=== PATIENT | male | born 1970 | race Caucasian/White ===

== ENCOUNTER 2016-03-24 15:30 | Outpatient (CLI) | payer OTHER | END 2016-03-24 15:31 | disposition home or self-care (01) | DX: D68.62 Lupus anticoagulant syndrome (principal) ==

== ENCOUNTER 2016-10-12 07:48 | Outpatient (CLI) | payer OTHER ==
[2016-10-12] MEDS ORDERED: GADOBUTROL 15 MMOL/15 ML VIAL IVP ONE (08:27)
--- NOTE | 2016-10-12 12:04 | MRI Report ---
EXAM: MRI BRAIN WITHOUT AND WITH CONTRAST EXAM DATE: 10/12/2016 09:05 AM. CLINICAL HISTORY: 46-year-old with history of multiple sclerosis presenting with bilateral arm fatigu e and spasms. Evaluate for interval change. COMPARISON: MR brain 12/16/2015. TECHNIQUE: Multiplanar, multisequence T1-weighted and fluid-sensitive MR sequences of the brain were performed. Sequences optimized for demyelinating disease evaluation. Other: None. Without and with IV Contrast: 11 cc GADAVIST. FINDINGS: BRAIN: Parenchyma: There is moderate bilateral areas of T2/FLAIR signal hyperintensity involving the juxtaco rtical, subcortical, and periventricular white matter that are similar in size and distribution to . Several lesions denser T1 signal hypointensity compatible with myelin vacuolization. No defi nite new T2 hyperintense lesion seen within the supratentorial white matter. There are T2 hyperintens e lesion seen involving bilateral thalami that appear similar to prior study. No definite new T2 hype rintense lesions involving the corpus callosum, brainstem, or cerebellum. No abnormal postcontrast en hancement. No acute parenchymal hemorrhage, mass, or midline shift. No areas restricted diffusion to suggest acu te infarct. Pituitary: Unremarkable. Ventricles and Extra-axial Spaces: Ventricles are symmetric and normal in size. Extra-axial spaces ar e unremarkable. Cisterns are patent. Fluid is seen within Meckel's caves. Visualized detective and intelligence analyst y canals appear clear. Orbits: Unremarkable. Sinuses: Small left maxillary mucosal retention cyst versus polyp. Mastoid air cells and middle ear c avities are clear. Major Vascular Flow Voids: Intact. Dural Venous Sinuses and Major Central Veins: Patent on post-contrast images. IMPRESSION: 1. Moderate white matter changes that appear similar in size and distribution to MR 12/16/2015 and can be compatible with patient's history of demyelinating disease. No definite new T2 hyperintense lesio n seen. No abnormal postcontrast enhancement to suggest active demyelination. 2. No acute infarct, intracranial hemorrhage, mass, hydrocephalus, or abnormal postcontrast enhanceme nt. [facility] Referring Provider Line: [phone] SITE ID: [id number]
== END 2016-10-12 07:49 | disposition home or self-care (01) ==
LOC: DI 07:48
PROVIDERS: ATTEND Specialist
DX: G93.9 Disorder of brain, unspecified (principal)
CPT/HCPCS: 70553; A9585

== ENCOUNTER 2017-01-25 08:30 | Outpatient (CLI) | payer OTHER ==
[2017-01-25 13:30] LABS: BASOPHILS % (AUTO) 0.3 %; EOSINOPHILS # (AUTO) 0.2 10^3/uL (0.0-0.7); EOSINOPHILS % (AUTO) 2.6 %; HCT - HEMATOCRIT 41.7 % (42.0-52.0); HGB - HEMOGLOBIN 14.2 g/dL (14.0-18.0); LYMPHOCYTES # (AUTO) 2.3 10^3/uL (1.5-3.5); LYMPHOCYTES % (AUTO) 32.4 %; MEAN CORPUSCULAR VOLUME 96.9 fL (80.0-94.0); MEAN PLATELET VOLUME 8.2 fL (7.4-11.4); MONOCYTES # (AUTO) 0.5 10^3/uL (0.0-1.0); MONOCYTES % (AUTO) 6.9 %; NEUTROPHILS % (AUTO) 57.8 %; RED BLOOD COUNT 4.31 10^6/uL (4.70-6.10); RED CELL DISTRIBUTION WIDTH 12.6 % (12.0-15.0)
[2017-01-25 13:38] LABS: ALBUMIN/GLOBULIN RATIO 1.8 (1.0-2.2); BILIRUBIN,TOTAL 0.4 mg/dL (0.2-1.0); BUN - BLOOD UREA NITROGEN 19 mg/dL (6-20); CARBON DIOXIDE - CO2 25 mmol/L (21-32); CHLORIDE 105 mmol/L (101-111); CHOL/HDL RATIO 5.6 (<5.0); CHOLESTEROL 262 mg/dL; CREATININE 0.9 mg/dL (0.6-1.2); GFR - MDRD 90 (>89); GLUCOSE 91 mg/dL (70-100); HDL CHOLESTEROL 47 mg/dL; LDL/HDL RATIO 3.7 (<3.6); POTASSIUM 4.3 mmol/L (3.5-5.0); SODIUM 136 mmol/L (135-145); TOTAL PROTEIN 6.7 g/dL (6.7-8.2); TRIGLYCERIDES 205 mg/dL; VLDL CHOLESTEROL 41 mg/dL
== END 2017-01-25 08:31 | disposition home or self-care (01) ==
LOC: LAB.WCP 08:30
PROVIDERS: ATTEND Physician Assistant Medical
DX: Z00.00 Encounter for general adult medical examination without abnormal findings (principal); Z12.5 Encounter for screening for malignant neoplasm of prostate
CPT/HCPCS: 36415; 80053; 80061; 84153; 84443; 85025

== ENCOUNTER 2017-04-16 15:43 | Outpatient (CLI) | payer OTHER | END 2017-04-16 15:44 | disposition home or self-care (01) | LOC: RT 15:43 | PROVIDERS: ATTEND Orthopaedic Surgery Orthopaedic Surgery of the Spine | DX: Z01.818 Encounter for other preprocedural examination (principal); M48.02 Spinal stenosis, cervical region | CPT/HCPCS: 36415; 80048; 85025; 93005 ==

== ENCOUNTER 2017-04-16 15:48 | Outpatient (CLI) | payer OTHER ==
[2017-04-16 16:00] LABS: BASOPHILS # (AUTO) 0.1 10^3/uL (0.0-0.1); BASOPHILS % (AUTO) 0.7 %; EOSINOPHILS # (AUTO) 0.2 10^3/uL (0.0-0.7); EOSINOPHILS % (AUTO) 2.3 %; HGB - HEMOGLOBIN 13.2 g/dL (14.0-18.0); LYMPHOCYTES # (AUTO) 2.7 10^3/uL (1.5-3.5); LYMPHOCYTES % (AUTO) 39.7 %; MEAN CORPUSCULAR HEMOGLOBIN 33.1 pg (27.0-31.0); MEAN CORPUSCULAR HGB CONC 34.4 g/dL (32.0-36.0); MEAN CORPUSCULAR VOLUME 96.2 fL (80.0-94.0); MEAN PLATELET VOLUME 7.7 fL (7.4-11.4); MONOCYTES # (AUTO) 0.7 10^3/uL (0.0-1.0); MONOCYTES % (AUTO) 10.1 %; NEUTROPHILS # (AUTO) 3.2 10^3/uL (1.5-6.6); NEUTROPHILS % (AUTO) 47.2 %; PLT - PLATELET COUNT 266 10^3/uL (130-450); RED CELL DISTRIBUTION WIDTH 13.2 % (12.0-15.0); WHITE BLOOD COUNT 6.8 x10^3/uL (4.8-10.8)
[2017-04-16 16:15] LABS: CALCIUM 8.5 mg/dL (8.5-10.3); CREATININE 0.8 mg/dL (0.6-1.2)
== END 2017-04-16 15:49 | disposition home or self-care (01) ==
LOC: LAB 15:48
PROVIDERS: ATTEND Orthopaedic Surgery Orthopaedic Surgery of the Spine
DX: M48.02 Spinal stenosis, cervical region (principal)
CPT/HCPCS: 36415; 80048; 85025

== ENCOUNTER 2017-07-29 07:23 | Emergency (ER) | payer OTHER ==
--- NOTE | 2017-07-29 08:21 | XRAY Preliminary Report ---
Exam: XR CHEST 2 VIEW X-RAY IMPRESSION: Unremarkable chest for age and body size. No pneumonia, CHF or other demonstrated cause f or the patient's symptoms. [facility] SITE ID: [id number]
--- NOTE | 2017-07-29 08:27 | XRAY Report ---
EXAM: CHEST RADIOGRAPHY, TWO VIEWS EXAM DATE: 07/29/2017 08:15 AM. CLINICAL HISTORY: 47-year-old male with cough beginning on Sunday, with chills, sweats and fever last night. COMPARISON: 11/20/2011. TECHNIQUE: Upright PA and lateral views. FINDINGS: Lungs/Pleura: No focal opacities evident. No pleural effusion. No pneumothorax. Normal volumes. Mediastinum: Heart and mediastinal contours are unremarkable. No pulmonary vascular congestion or joyce nopathy. Other: Trachea is midline. Osseous structures show no acute process. Lower cervical fusion procedure noted, incompletely visualized on this study, new from prior exam. IMPRESSION: Unremarkable chest for age and body size. No pneumonia, CHF or other demonstrated cause f or the patient's symptoms. [facility] Referring Provider Line: [phone] SITE ID: [id number]
[2017-07-29] MEDS ORDERED: DEXAMETHASONE 10 MG/ML VIAL PO STA (08:42)
--- NOTE | 2017-07-29 08:42 | ED Physician Documentation ---
PD HPI URI - Stated complaint Stated Complaint: SOB/FEVER/COUGH - Chief complaint Chief Complaint: General - History obtained from History obtained from: Patient, Family - History of Present Illness Timing - onset: How many days ago (2) Timing duration: Days (2) Timing details: Gradual onset, Still present Associated symptoms: Fever, Chills, Sweats, Nasal congestion, Rhinorrhea, Productive cough, Dyspnea Contributing factors: Sick contact Improves by: Rest, Medication Worsened by: Activity Similar symptoms before: Has not had sx before Recently seen: Clinic - Additional information Additional information: 47-year-old male with a history of cervical disc disease and multiple sclerosis has developed a cough and congestion. He is developed fever and chills with this as well as a sore throat. Review of Systems Constitutional: reports: Fever, Chills Eyes: denies: Decreased vision Ears: denies: Ear pain Nose: reports: Rhinorrhea / runny nose, Congestion Throat: reports: Sore throat Cardiac: denies: Chest pain / pressure, Palpitations Respiratory: reports: Dyspnea, Cough GI: denies: Abdominal Pain, Nausea, Vomiting : denies: Dysuria PD PAST MEDICAL HISTORY - Past Medical History Past Medical History: Yes Cardiovascular: None Respiratory: None Endocrine/Autoimmune: None, Systemic lupus erythematosus HEENT: None Musculoskeletal: Osteoarthritis, Fatigue, Chronic back pain Derm: None - Past Surgical History Past Surgical History: Yes General: Other Ortho: ACL reconstruction, Rotator cuff repair - Present Medications Home Medications: Ambulatory Orders Medication Instructions Recorded Confirmed Cholecalciferol (Vitamin D3) 2,000 unit PO DAILY 04/22/15 12/27/15 [Vitamin D3] Ibuprofen 800 mg PO BID 04/22/15 12/27/15 Magnesium 500 mg PO DAILY 04/22/15 12/27/15 Naratriptan HCl [Naratriptan] 2.5 mg PO DAILY PRN 04/22/15 12/27/15 Amantadine HCl [Amantadine] 300 mg PO TID 10/04/15 12/27/15 Aspirin [Aspir-Low] 2 tab PO DAILY 10/04/15 12/27/15 Baclofen 50 mg PO TID 10/04/15 12/27/15 Carbamazepine 400 - 600 mg PO TID 10/04/15 12/27/15 Cyanocobalamin (Vitamin B-12) 1,000 mcg PO DAILY 10/04/15 12/27/15 [Vitamin B12] Interferon Beta-1A/Albumin [Rebif 1 each ONCE 11/02/15 12/27/15 44 Mcg/0.5 ml Syringe] Zonisamide 200 mg PO DAILY 11/02/15 12/27/15 Azithromycin [Zithromax] 250 mg PO DAILY #6 tablet 07/29/17 - Allergies Allergies/Adverse Reactions: Allergies Allergy/AdvReac Type Severity Reaction Status Date / Time No Known Drug Allergies Allergy Verified 04/22/15 14:42 - Social History Does the pt smoke?: No Smoking Status: Never smoker Does the pt drink ETOH?: Yes Does the pt have substance abuse?: No PD ED PE NORMAL - Vitals Vital signs reviewed: Yes (Febrile tachycardic and hypertensive) - General General: Alert and oriented X 3, No acute distress, Well developed/nourished - HEENT HEENT: Atraumatic, PERRL, EOMI, Other (Both TMs are markedly inflamed the left is worse than the right the pharynx is generally inflamed with exudate.) - Neck Neck: Supple, no meningeal sign, No bony TTP - Cardiac Cardiac: No murmur, Other (Tachycardia to 110) - Respiratory Respiratory: No respiratory distress, Clear bilaterally - Abdomen Abdomen: Soft, Non tender - Back Back: No CVA TTP, No spinal TTP - Derm Derm: Normal color, Warm and dry, No rash - Extremities Extremities: No deformity, No edema - Neuro Neuro: No motor deficit, No sensory deficit Eye Opening: Spontaneous Motor: Obeys Commands Verbal: Oriented GCS Score: 15 - Psych Psych: Normal mood, Normal affect Results - Vitals Vitals: Vital Signs - 24 hr 07/29/17 07:30 Temperature 38.1 C H Heart Rate 111 H Respiratory 22 Rate Blood Pressure 137/92 H O2 Saturation 96 Oxygen O2 Source Room air - Labs Labs: Laboratory Tests 07/29/17 07/29/17 07:40 08:35 Influenza A (Rapid) Negative Influenza B (Rapid) Negative Group A Strep Rapid Negative - Rads (name of study) 2 veiw chest Radiology: Prelim report reviewed (Impression: Unremarkable chest for age and body size. No pneumonia, CHF or other demonstrate a cause for the patient's symptoms.), EMP read indepedently, See rad report PD MEDICAL DECISION MAKING - ED course Complexity details: reviewed results, re-evaluated patient, considered differential, d/w patient, d/w family ED course: 47 y/o male with cough and congestion with fever has OM on exam that is obvious. Rapid strep is negative and a CXR is without infiltrate. He is treated with decadron and we will put him on some zithromax. Departure - Departure Disposition: 01 Home, Self Care Clinical Impression: Otitis media Qualifiers: Otitis media type: suppurative Chronicity: acute Laterality: bilateral Recurrence: not specified as recurrent Spontaneous tympanic membrane rupture: without spontaneous rupture Qualified Code(s): H66.003 - Acute suppurative otitis media without spontaneous rupture of ear drum, bilateral Condition: Stable Instructions: ED Otitis Media Acute Adult Follow-Up: Amada Mccarthy PA-C [Primary Care Provider] - Prescriptions: Azithromycin [Zithromax] 250 mg PO DAILY #6 tablet
[2017-07-29] MEDS ORDERED: fentaNYL 100 MCG/2 ML VIAL IM STA (08:59)
[2017-07-29 09:53] VITALS: BP 125/78
== END 2017-07-29 09:53 | disposition home or self-care (01) ==
LOC: ED 07:23
DX: H66.003 Acute suppurative otitis media without spontaneous rupture of ear drum, bilateral (principal); J02.9 Acute pharyngitis, unspecified; G35 Multiple sclerosis; M32.9 Systemic lupus erythematosus, unspecified; M50.30 Other cervical disc degeneration, unspecified cervical region; Z79.82 Long term (current) use of aspirin
CPT/HCPCS: 71046; 87070; 87275; 87276; 87430; 96372; 99283

== ENCOUNTER 2018-01-23 11:43 | Emergency (ER) | payer OTHER ==
[2018-01-23] MEDS ORDERED: SODIUM CHLORIDE 0.9% 1,000 ML IV ONE (12:52)
[2018-01-23] MEDS ORDERED: DEXAMETHASONE 10 MG/ML VIAL IVP STA (12:52)
[2018-01-23] MEDS ORDERED: KETOROLAC 60 MG/2 ML VIAL IVP STA (12:52)
[2018-01-23] MEDS ORDERED: diphenhydrAMINE INJ 50 MG/ML VIAL IVP STA (12:53)
[2018-01-23] MEDS ORDERED: PROCHLORPERAZINE 10 MG/2 ML VIAL IVP STA (12:53)
--- NOTE | 2018-01-23 12:56 | ED Physician Documentation ---
PD HPI HEADACHE - Stated complaint Stated Complaint: MIGRAINE - Chief complaint Chief Complaint: Neuro - History obtained from History obtained from: Patient, Family - History of Present Illness Timing - onset: Last night Timing - onset during: Rest Timing - duration: Hours Timing - details: Abrupt onset, Still present Worst headache ever?: No: Worst headache ever? Location: Front, Back, Global Quality: Throbbing Associated symptoms: Stiff neck, Nausea. No: Fever, Vomiting, Weakness, Numbness, Syncope, Seizure, Eye pain, Vision changes Improved by: Rest, Dark room, Quiet Worsened by: Light, Noise, Moving Similar symptoms before: Diagnosis (migraine) Recently seen: Not recently seen - Additional information Additional information: 47-year-old male with a history of migraine headaches has developed a migraine headache beginning last night he complains of pain in the back of his head at the base of his neck and anteriorly over his forehead and his temples. It is throbbing in nature he has had nausea he has not had any vomiting. He has had these headaches previously he is usually able to abort them with rest and medications. He has had to have rescue in the emergency department previously. He remembers getting an injection of something. Review of Systems Constitutional: denies: Fever Eyes: reports: Photophobia. denies: Decreased vision Ears: denies: Ear pain Nose: denies: Rhinorrhea / runny nose, Congestion Throat: denies: Sore throat Cardiac: denies: Chest pain / pressure, Palpitations Respiratory: denies: Dyspnea, Cough GI: reports: Nausea. denies: Abdominal Pain, Vomiting, Constipation, Diarrhea : denies: Dysuria, Frequency PD PAST MEDICAL HISTORY - Past Medical History Past Medical History: Yes Cardiovascular: None Respiratory: None Neuro: Migraines Endocrine/Autoimmune: None, Systemic lupus erythematosus HEENT: None Musculoskeletal: Osteoarthritis, Fatigue, Chronic back pain Derm: None Other Past Medical History: questionable ms - Past Surgical History Past Surgical History: Yes General: Other Ortho: ACL reconstruction, Rotator cuff repair, Other - Present Medications Home Medications: Ambulatory Orders Medication Instructions Recorded Confirmed Cholecalciferol (Vitamin D3) 2,000 unit PO DAILY 04/22/15 12/27/15 [Vitamin D3] RX: Ibuprofen 800 mg PO BID 04/22/15 12/27/15 Aspirin [Aspir-Low] 2 tab PO DAILY 10/04/15 12/27/15 Cyanocobalamin (Vitamin B-12) 1,000 mcg PO DAILY 10/04/15 12/27/15 [Vitamin B12] Pregabalin [Lyrica] 300 mg PO 01/23/18 01/23/18 - Allergies Allergies/Adverse Reactions: Allergies Allergy/AdvReac Type Severity Reaction Status Date / Time No Known Drug Allergies Allergy Verified 01/23/18 11:47 - Social History Does the pt smoke?: No Smoking Status: Never smoker Does the pt drink ETOH?: Yes ETOH Use: Beer Does the pt have substance abuse?: No - Immunizations Immunizations are current?: Yes - POLST Patient has POLST: No PD ED PE NORMAL - Vitals Vital signs reviewed: Yes (hyertensive mild ) - General General: Alert and oriented X 3, Well developed/nourished, Other (There is marked photophobia, the patient is in a darkened room with a cloth over his face. ) - HEENT HEENT: Atraumatic, PERRL, EOMI, Ears normal, Moist mucous membranes, Pharynx benign, Dentition benign - Neck Neck: Supple, no meningeal sign, No bony TTP, Other (point tenderness midline at the base of the skull ) - Cardiac Cardiac: RRR, No murmur - Respiratory Respiratory: No respiratory distress, Clear bilaterally - Abdomen Abdomen: Soft, Non tender - Back Back: No CVA TTP, No spinal TTP - Derm Derm: Normal color, Warm and dry, No rash - Extremities Extremities: No deformity, No edema - Neuro Neuro: Alert and oriented X 3, horse shoer 2-12 intact, No motor deficit, No sensory deficit, Normal speech Eye Opening: Spontaneous Motor: Obeys Commands Verbal: Oriented GCS Score: 15 - Psych Psych: Normal mood, Normal affect Results - Vitals Vitals: Vital Signs - 24 hr 01/23/18 01/23/18 11:46 14:11 Temperature 36.5 C 36.4 C L Heart Rate 83 71 Respiratory 18 18 Rate Blood Pressure 138/84 H 103/66 O2 Saturation 99 98 Oxygen O2 Source Room air PD MEDICAL DECISION MAKING - ED course Complexity details: reviewed old records, reviewed results, re-evaluated patient, considered differential, d/w patient ED course: 39-year-old male with acute migraine headache is administered a migraine cocktail consisting of a liter of saline, 10 mg of Compazine, 10 mg of dexamethasone, 25 mg of Benadryl, and 30 mg of Toradol IV. The patient has resolution of his headache and is discharged to home. Departure - Departure Disposition: 01 Home, Self Care Clinical Impression: Migraine Condition: Stable Instructions: ED Headache Migraine Follow-Up: Madelyn Vang MD [Primary Care Provider] - Discharge Date/Time: 01/23/18 14:12
[2018-01-23 14:12] VITALS: BP 103/66
== END 2018-01-23 14:12 | disposition home or self-care (01) ==
LOC: ED 11:43
DX: G43.809 Other migraine, not intractable, without status migrainosus (principal); M32.9 Systemic lupus erythematosus, unspecified; M19.90 Unspecified osteoarthritis, unspecified site; R53.83 Other fatigue; G89.29 Other chronic pain; M54.9 Dorsalgia, unspecified; Z79.1 Long term (current) use of non-steroidal anti-inflammatories (NSAID); Z79.82 Long term (current) use of aspirin; Z79.899 Other long term (current) drug therapy
CPT/HCPCS: 96361; 96374; 96375; 99283; 99284; J1200

== ENCOUNTER 2018-01-30 13:38 | Outpatient (CLI) | payer OTHER ==
--- NOTE | 2018-01-31 08:20 | XRAY Report ---
Reason: ARTHRALGIA, UNSPECIFIED JOINT, PAIN Procedure Date: 01/30/2018 Accession Number: [id number] / [id number] Procedure: XR - Knee 2 View RT CPT Code: FULL RESULT: EXAM: RIGHT KNEE RADIOGRAPHY EXAM DATE: 01/30/2018 01:57 PM. CLINICAL HISTORY: Arthralgia, unspecified joint, pain. COMPARISON: None. TECHNIQUE: 2 views. FINDINGS: Bones: No fracture or bone lesion. There is sequela of prior ACL reconstruction with 2 anchoring screws in position. Joints: Normal. No effusion. No subluxations. Soft Tissues: Normal. No soft tissue swelling. IMPRESSION: No specific abnormalities. Sequela of prior ACL reconstruction noted. [facility]
--- NOTE | 2018-01-31 08:20 | XRAY Report ---
Reason: ARTHRALGIA, UNSPECIFIED JOINT, PAIN Procedure Date: 01/30/2018 Accession Number: [id number] / [id number] Procedure: XR - Hip w/Pelvis 2-3V RT CPT Code: FULL RESULT: EXAM: RIGHT HIP AND PELVIS RADIOGRAPHY EXAM DATE: 01/30/2018 01:57 PM. HISTORY: Arthralgia, unspecified joint, pain. COMPARISONS: None. TECHNIQUE: 1 view of the pelvis and 1 view of the hip. FINDINGS: Bones: Normal. No fracture or bone lesion. Joints: The bilateral hip, pubis symphysis, and sacroiliac joints are preserved. Mild marginal osteophyte of the superior and posterior acetabulum. Soft Tissues: Normal. No soft tissue swelling. IMPRESSION: Minor degenerative changes. No fracture appreciated. [facility]
--- NOTE | 2018-01-31 08:23 | XRAY Report ---
Reason: ARTHRALGIA, UNSPECIFIED JOINT, PAIN Procedure Date: 01/30/2018 Accession Number: [id number] / [id number] Procedure: XR - Hand 3 View RT CPT Code: FULL RESULT: EXAM: RIGHT HAND RADIOGRAPHY EXAM DATE: 01/30/2018 01:57 PM. CLINICAL HISTORY: Arthralgia, unspecified joint, pain. COMPARISON: XR FINGER MIN 2 VIEWS 08/22/2009 8:05 PM. TECHNIQUE: 3 views. FINDINGS: Bones: Normal. No fractures or bone lesions. Joints: Normal. No subluxations. Soft Tissues: Normal. No soft tissue swelling. IMPRESSION: Normal hand radiography. [facility]
== END 2018-01-30 13:39 | disposition home or self-care (01) ==
LOC: DI 13:38
PROVIDERS: ATTEND Psychiatry & Neurology Vascular Neurology
DX: M25.551 Pain in right hip (principal); M25.561 Pain in right knee; M79.641 Pain in right hand

== ENCOUNTER 2018-05-31 11:53 | Outpatient (CLI) | payer OTHER ==
--- NOTE | 2018-05-31 13:37 | XRAY Report ---
Reason: COUGH,FEVER Procedure Date: 05/31/2018 Accession Number: [id number] / [id number] Procedure: XR - Chest 2 View X-Ray CPT Code: 84788 FULL RESULT: EXAM: CHEST RADIOGRAPHY EXAM DATE: 05/31/2018 01:14 PM. CLINICAL HISTORY: Cough, fever. COMPARISON: CHEST 2 VIEW 07/29/2017 8:07 AM. TECHNIQUE: 2 views. FINDINGS: Heart size is normal. Lung volumes are somewhat low. No consolidation, pleural effusion, or pneumothorax. Partially visualized anterior spinal fixation hardware in the lower cervical spine. IMPRESSION: No acute cardiopulmonary findings. [facility] The call report notification system was initiated by Dr. Jesse Hannon at 01:35 PM on 05/31/2018.
== END 2018-05-31 11:54 | disposition home or self-care (01) ==
LOC: DI 11:53
PROVIDERS: ATTEND Internal Medicine
DX: R05 Cough (principal); R50.9 Fever, unspecified
CPT/HCPCS: 71046

== ENCOUNTER 2018-06-07 09:17 | Outpatient (CLI) | payer OTHER ==
--- NOTE | 2018-06-07 11:18 | Ultrasound Report ---
Reason: LT BREAST LUMP AT 9 O'CLOCK Procedure Date: 06/07/2018 Accession Number: [id number] / [id number] Procedure: US - Breast Unilateral Limited CPT Code: FULL RESULT: EXAM: Diagnostic Dig Bilat, Breast Unilateral Limited DATE: 06/07/2018 10:12 AM CLINICAL HISTORY: Palpable lump per patient anterior upper outer left breast for one month. PCP exam designates palpable finding at 9:00 left breast.. Family history of breast cancer in sister in her 40s. TECHNIQUE: Bilateral CC and MLO views were obtained. Real-time ultrasound was performed by both the technologist and the radiologist. COMPARISON: None FINDINGS: The breasts demonstrate diffuse fatty replacement bilaterally. Left breast: There is minor glandular tissue in the subareolar breast consistent with gynecomastia. There are no suspicious masses, calcifications or areas of distortion. There is no mammographic finding in the region of palpable concern as marked by external marker 2:00 breast anterior. Area of palpable concern in the anterior 2:00 breast is reproduced at physical exam. Targeted ultrasound shows only normal isoechoic fat in the region of palpable concern. Targeted ultrasound in the 9:00 breast shows normal-appearing tissues. Right breast: There is minor symmetric glandular tissue in the subareolar breast consistent with gynecomastia. There are no suspicious masses, calcifications or areas of distortion. IMPRESSION: Left breast: No imaging findings of concern to correspond to the palpable finding left breast, or an area of PCP designated concern 9:00 breast. Minor incidental gynecomastia. Benign. BI-RADS Category 2. Clinical follow-up for palpable finding is recommended. Patient was instructed to seek reevaluation for any increase in current symptoms or new symptoms/concerns. Otherwise no specific imaging follow-up recommendation. Right breast: Minor incidental gynecomastia. Benign. BI-RADS Category 2. No specific imaging follow-up recommendation. BI-RADS CATEGORY 2: Benign findings STANDARD QUALIFYING STATEMENTS: 1. This examination was not reviewed with the aid of Computer-Aided Detection (CAD). 2. A negative or benign imaging report should not preclude biopsy if clinically suspicious findings are present. 3. Dense breasts may obscure an underlying neoplasm. 4. This examination was reviewed with the aid of 3D breast imaging (tomosynthesis).
== END 2018-06-07 09:18 | disposition home or self-care (01) ==
LOC: DI 09:17
PROVIDERS: ATTEND Internal Medicine
DX: N63.21 Unspecified lump in the left breast, upper outer quadrant (principal); Z80.3 Family history of malignant neoplasm of breast
CPT/HCPCS: 76642; 77066

== ENCOUNTER 2018-07-19 07:50 | Outpatient (CLI) | payer OTHER ==
[2018-07-19 08:01] LABS: BASOPHILS % (AUTO) 0.5 %; EOSINOPHILS # (AUTO) 0.3 10^3/uL (0.0-0.7); EOSINOPHILS % (AUTO) 3.1 %; HGB - HEMOGLOBIN 13.6 g/dL (14.0-18.0); LYMPHOCYTES # (AUTO) 3.3 10^3/uL (1.5-3.5); LYMPHOCYTES % (AUTO) 35.7 %; MEAN CORPUSCULAR HEMOGLOBIN 30.7 pg (27.0-31.0); MEAN CORPUSCULAR VOLUME 92.9 fL (80.0-94.0); MEAN PLATELET VOLUME 8.1 fL (7.4-11.4); MONOCYTES # (AUTO) 0.7 10^3/uL (0.0-1.0); MONOCYTES % (AUTO) 7.9 %; NEUTROPHILS # (AUTO) 4.8 10^3/uL (1.5-6.6); NEUTROPHILS % (AUTO) 52.8 %; PLT - PLATELET COUNT 213 10^3/uL (130-450); RED BLOOD COUNT 4.42 10^6/uL (4.70-6.10); WHITE BLOOD COUNT 9.2 x10^3/uL (4.8-10.8)
[2018-07-19 08:12] LABS: ALBUMIN 3.8 g/dL (3.2-5.5); ALBUMIN/GLOBULIN RATIO 1.5 (1.0-2.2); BILIRUBIN,TOTAL 0.7 mg/dL (0.2-1.0); CALCIUM 8.6 mg/dL (8.5-10.3); CREATININE 1.1 mg/dL (0.6-1.2); TOTAL PROTEIN 6.4 g/dL (6.7-8.2)
[2018-07-19 08:15] LABS: BILIRUBIN,URINE NEGATIVE (NEGATIVE); GLUCOSE, URINE (UA) NEGATIVE (NEGATIVE); KETONES,URINE (UA) NEGATIVE (NEGATIVE); LEUKOCYTE ESTERASE, URINE NEGATIVE (NEGATIVE); NITRITE,URINE NEGATIVE (NEGATIVE); OCCULT BLOOD,URINE NEGATIVE (NEGATIVE); PROTEIN,URINE NEGATIVE (NEGATIVE); UROBILINOGEN,URINE 0.2 (NORMAL) E.U./dL (NORMAL)
[2018-07-19 08:35] LABS: CLARITY,URINE CLEAR (CLEAR)
[2018-07-19 08:36] LABS: BACTERIA,URINE Rare /HPF (None Seen); MUCUS,URINE Few Strands; RBC,URINE None Seen /HPF (0-5); SQUAMOUS EPITHELIAL CELL,UR FEW Squamous (<= Few)
== END 2018-07-19 07:51 | disposition home or self-care (01) ==
LOC: RT 07:50
PROVIDERS: ATTEND Internal Medicine Gastroenterology
DX: E78.5 Hyperlipidemia, unspecified (principal); E66.01 Morbid (severe) obesity due to excess calories; K42.9 Umbilical hernia without obstruction or gangrene; D68.62 Lupus anticoagulant syndrome
CPT/HCPCS: 36415; 80053; 81001; 85025; 87086; 93005

== ENCOUNTER 2018-07-29 06:12 | Day surgery (SDC) | payer OTHER ==
[2018-07-29] MEDS ORDERED: ceFAZolin 1 GM VIAL ONE (07:00)
[2018-07-29] MEDS ORDERED: BUPIVACAINE 0.5% PF 30 ML VIAL ONE (07:00)
[2018-07-29] MEDS ORDERED: BUPIVACAINE 0.5%-EPI 1:200000 PF 30 ML VIAL ONE (07:01)
--- NOTE | 2018-07-29 07:01 | ANESTHESIA ---
Pre-Anesthesia VS, & Labs - Diagnosis Umbilical hernia - Procedure umbilical hernia repair with mesh Vital Signs: Temp Pulse Resp BP Pulse Ox 36.4 C L 79 8 L 114/83 H 97 07/29/18 06:41 07/29/18 06:41 07/29/18 06:41 07/29/18 06:41 07/29/18 06:41 Height 5 ft 7 in Weight (kg) 133.9 kg Body Mass Index 43.8 - NPO >8 hours - Lab Results Lab results reviewed: Yes Home Medications and Allergies Cholecalciferol (Vitamin D3) [Vitamin D3] 2,000 unit PO DAILY 04/22/15 Ibuprofen 800 mg PO BID 04/22/15 Aspirin [Aspir-Low] 2 tab PO DAILY 10/04/15 Cyanocobalamin (Vitamin B-12) [Vitamin B12] 1,000 mcg PO DAILY 10/04/15 Pregabalin [Lyrica] 300 mg PO BID 01/23/18 Allergies/Adverse Reactions: Allergies Allergy/AdvReac Type Severity Reaction Status Date / Time No Known Drug Allergies Allergy Verified 01/23/18 11:47 Anes History & Medical History - Anesthetic History Anesthesia Complications: reports: No previous complications Family history of Anesthesia Complications: Denies Family history of Malignant Hyperthermia: Denies - Medical History Cardiovascular: reports: None Pulmonary: reports: None Gastrointestinal: reports: None Urinary: reports: None Neuro: reports: Migraines Musculoskeletal: reports: Osteoarthritis, Fatigue, Chronic back pain Endocrine/Autoimmune: reports: None, Systemic lupus erythematosus Blood Disorders: reports: None Skin: reports: None Smoking Status: Never smoker - Surgical History General: Other (L inguinal hernia) Orthopedic: ACL reconstruction, Rotator cuff repair, Other Exam General: Alert, Oriented x3, Cooperative Dental: WNL Mouth Openin Fingerbreadth Neck Mobility: Reduced (cervical fusionx2, minimal reduction in ROM) Mallampati classification: II Thyromental Distance: 4-6 cm Respiratory: Lungs clear, Normal breath sounds Cardiovascular: Regular rate Neurological: Normal speech Mental/Cognitive Status: Alert/Oriented X3 Cognitive Status: Within normal limits Plan Anesthesia Type: General Consent for Procedure(s) Verified and Reviewed: Yes Code Status: Attempt Resuscitation ASA classification: 2-Mild systemic disease Is this case an emergency?: No
[2018-07-29] MEDS ORDERED: LACTATED RINGERS 1,000 ML IV ONE (07:11)
[2018-07-29] MEDS ORDERED: ceFAZolin 3 GM in SODIUM CHLORIDE 0.9% 100ML 100 ML IV ONE (08:00)
[2018-07-29] MEDS ORDERED: fentaNYL 250 MCG/5 ML VIAL IVP ONE (08:03)
[2018-07-29] MEDS ORDERED: PROPOFOL 200 MG/20 ML VIAL IVP ONE (08:03)
[2018-07-29] MEDS ORDERED: LIDOCAINE-MPF 2% 5 ML VIAL IM ONE (08:03)
[2018-07-29] MEDS ORDERED: GLYCOPYRROLATE 1 MG/5 ML VIAL IVP ONE (08:03)
[2018-07-29] MEDS ORDERED: DEXAMETHASONE 4 MG/ML VIAL IVP ONE (08:03)
[2018-07-29] MEDS ORDERED: KETOROLAC 30 MG/ML VIAL IVP ONE (08:03)
[2018-07-29] MEDS ORDERED: MIDAZOLAM 2 MG/2 ML VIAL IVP ONE (08:03)
[2018-07-29] MEDS ORDERED: SUCCINYLCHOLINE 200 MG/10 ML VIAL IVP ONE (08:03)
[2018-07-29] MEDS ORDERED: ONDANSETRON 4 MG/2 ML VIAL IVP ONE (08:03)
[2018-07-29] MEDS ORDERED: NEOSTIGMINE 1 MG/1 ML 10 ML MDV IVP ONE (08:03)
[2018-07-29] MEDS ORDERED: SODIUM CHLORIDE 0.9% 10 ML VIAL IV ONE (08:03)
[2018-07-29] MEDS ORDERED: ceFAZolin 1 GM VIAL IR ONE (08:04)
[2018-07-29] MEDS ORDERED: BUPIVACAINE 0.5%-EPI 1:200000 PF 30 ML VIAL SUBQ ONE ×2 (08:04)
[2018-07-29] MEDS ORDERED: ACETAMINOPHEN 325 MG TABLET PO PRN (08:48)
[2018-07-29] MEDS ORDERED: oxyCODONE 5 MG TABLET PO PRN (08:48)
[2018-07-29] MEDS ORDERED: ONDANSETRON 4 MG/2 ML VIAL IVP PRN (08:48)
[2018-07-29] MEDS ORDERED: IBUPROFEN 600 MG TABLET PO PRN (08:48)
[2018-07-29] MEDS ORDERED: oxyCODONE 5 MG TABLET ONE (09:45)
--- NOTE | 2018-07-29 10:13 | OPERATIVE REPORT ---
DATE OF SERVICE: 07/29/2018 Physician: Blayne Cooper MD PREOPERATIVE DIAGNOSIS: Symptomatic umbilical hernia. POSTOPERATIVE DIAGNOSIS: Symptomatic umbilical hernia, incarcerated. PROCEDURE PERFORMED: Open repair of same with Ventralex ST hernia patch. ANESTHESIA: General endotracheal by Ryan Ma CRNA. SURGEON: Blayne Cooper MD. ESTIMATED BLOOD LOSS: 10 mL COMPLICATIONS: None. FINDINGS: A 3.5 cm umbilical fascial hernia defect was identified with preperitoneal fat that was viable present and incarcerated within the hernia sac. A [address] hernia patch was placed in a preperitoneal position. INDICATIONS: Patient is a 48-year-old gentleman with a several-month history of an increasingly painful and enlarging umbilical bulge. Examination revealed a partially reducible umbilical hernia. He was advised to undergo repair. TECHNIQUE: After informed consent, the patient was taken to the operating room, where he was placed under general endotracheal anesthesia. Preoperative preparation included administration of 3.0 grams of cefazolin intravenously within an hour of the incision and application of sequential calf compression boots. His abdomen had been clipped in the ASU and was prepared with ChloraPrep solution and draped in the usual sterile fashion. A curvilinear transverse incision approximately 6 cm in length was placed across the superior edge of the umbilicus and carried down through subcutaneous fat. Hemostasis was achieved with electrocautery. The umbilical dermis was dissected off of the underlying hernia sac, which was mobilized circumferentially down to the level of the anterior fascia, the hernia sac was excised and discarded. Hernia contents were reduced back into the preperitoneal space, which was dissected circumferentially of sufficient size and circumference to allow placement of an appropriate sized Ventralex ST hernia patch. A 6 cm patch was chosen, was soaked in antibiotic solution containing 1 gram of cefazolin per 500 mL and was placed in the preperitoneal position. After hemostasis had been ensured, the fascial defect was then reapproximated transversely incorporating several of the sutures in the strap anchoring holding the mesh in place. Excess strap was excised and discarded. Fascial edges were reapproximated with 0 Ethibond sutures. Approximately half a dozen were used. After hemostasis was ensured, the wound was irrigated with antibiotic solution, following which wound closure was accomplished in layers using interrupted 2-0 Vicryl, reapproximated the umbilical dermis to the anterior fascia and to also reapproximate the deep subcutaneous fat. Continuous 3-0 Vicryl was used for the superficial subcutaneous fat and 4-0 Monocryl subcuticular skin closure, followed by Dermabond completed wound closure. Anesthesia was terminated and patient was transferred to the recovery room in satisfactory condition. Sponge and needle counts were correct x2. No drains were used. TD: 07/29/2018 08:59 MTDD
[2018-07-29 10:52] VITALS: BP 129/94
== END 2018-07-29 06:13 | disposition home or self-care (01) ==
LOC: SDS 06:12
PROVIDERS: ATTEND Internal Medicine Gastroenterology
PROC: 0WUF0JZ Supplement Abdominal Wall with Synthetic Substitute, Open Approach (ICD-10-PCS; principal; 2018-07-29 07:30)
DX: K42.0 Umbilical hernia with obstruction, without gangrene (principal); D68.62 Lupus anticoagulant syndrome; K40.91 Unilateral inguinal hernia, without obstruction or gangrene, recurrent; G89.29 Other chronic pain; M54.12 Radiculopathy, cervical region; M50.30 Other cervical disc degeneration, unspecified cervical region; M79.7 Fibromyalgia; F32.9 Major depressive disorder, single episode, unspecified; E78.5 Hyperlipidemia, unspecified; G43.719 Chronic migraine without aura, intractable, without status migrainosus; J30.9 Allergic rhinitis, unspecified; H54.7 Unspecified visual loss; R42 Dizziness and giddiness; E66.01 Morbid (severe) obesity due to excess calories; Z68.42 Body mass index [BMI] 45.0-49.9, adult; Z79.82 Long term (current) use of aspirin; Z98.1 Arthrodesis status
CPT/HCPCS: 49585; A9270; C1781; J7120

== ENCOUNTER 2018-12-16 16:58 | Outpatient (CLI) | payer OTHER ==
--- NOTE | 2018-12-20 06:43 | XRAY Report ---
Reason: DYSPNEA,DECREASED BREATH SOUNDS L BASE Procedure Date: 12/16/2018 Accession Number: [id number] / [id number] Procedure: XR - Chest 2 View X-Ray CPT Code: 23151 FULL RESULT: EXAM: CHEST RADIOGRAPHY EXAM DATE: 12/16/2018 05:11 PM. CLINICAL HISTORY: DYSPNEA,DECREASED BREATH SOUNDS L BASE. COMPARISON: CHEST 2 VIEW 05/31/2018 1:14 PM CHEST 2 VIEW 07/29/2017 8:07 AM. TECHNIQUE: 2 views. FINDINGS: Lungs/Pleura: Elevated left hemidiaphragm, new since 05/31/2018. Last basal atelectasis. Mediastinum: Heart size within normal limits. No pulmonary vascular congestion. Osseous structures: No significant focal osseous lesions. IMPRESSION: 1. Elevated left diaphragm, new since 05/31/2018. 2. Left basilar atelectasis. RADIA
== END 2018-12-16 16:59 | disposition home or self-care (01) ==
LOC: DI 16:58
PROVIDERS: ATTEND Internal Medicine
DX: J98.6 Disorders of diaphragm (principal); J98.11 Atelectasis
CPT/HCPCS: 71046

== ENCOUNTER 2018-12-18 14:35 | Emergency (ER) | payer OTHER ==
[2018-12-18 15:29] LABS: BASOPHILS # (AUTO) 0.1 10^3/uL (0.0-0.1); BASOPHILS % (AUTO) 0.5 %; EOSINOPHILS # (AUTO) 0.5 10^3/uL (0.0-0.7); EOSINOPHILS % (AUTO) 4.6 %; HGB - HEMOGLOBIN 12.4 g/dL (14.0-18.0); LYMPHOCYTES # (AUTO) 3.5 10^3/uL (1.5-3.5); LYMPHOCYTES % (AUTO) 31.6 %; MEAN CORPUSCULAR HEMOGLOBIN 30.4 pg (27.0-31.0); MEAN CORPUSCULAR HGB CONC 31.8 g/dL (32.0-36.0); MEAN CORPUSCULAR VOLUME 95.6 fL (80.0-94.0); MEAN PLATELET VOLUME 9.8 fL (7.4-11.4); MONOCYTES # (AUTO) 0.8 10^3/uL (0.0-1.0); MONOCYTES % (AUTO) 6.8 %; NEUTROPHILS # (AUTO) 6.3 10^3/uL (1.5-6.6); PLT - PLATELET COUNT 370 10^3/uL (130-450); RED BLOOD COUNT 4.08 10^6/uL (4.70-6.10); RED CELL DISTRIBUTION WIDTH 14.1 % (12.0-15.0); WHITE BLOOD COUNT 11.2 x10^3/uL (4.8-10.8)
--- NOTE | 2018-12-18 15:35 | XRAY Report ---
Reason: chest pain Procedure Date: 12/18/2018 Accession Number: [id number] / [id number] Procedure: XR - Chest 1 View X-Ray CPT Code: 54727 FULL RESULT: EXAM: CHEST RADIOGRAPHY EXAM DATE: 12/18/2018 03:25 PM. CLINICAL HISTORY: Chest pain. COMPARISON: CHEST 2 VIEW 12/16/2018 5:06 PM CHEST 2 VIEW 05/31/2018 1:14 PM. TECHNIQUE: 1 view. FINDINGS: Lungs/Pleura: Left basilar atelectasis. Mediastinum: Within exam limitations, the cardiomediastinal contour is normal. Other: Left hemidiaphragm elevation. Prior cervical spine fusion surgery. IMPRESSION: 1. Left hemidiaphragm elevation has developed since 05/31/2018. Left basilar atelectasis. Consider follow-up chest x-ray versus CT or bronchoscopy to exclude obstructing endobronchial process as clinically warranted. RADIA
[2018-12-18 15:46] LABS: ALBUMIN 4.2 g/dL (3.2-5.5); ALBUMIN/GLOBULIN RATIO 1.4 (1.0-2.2); BILIRUBIN,TOTAL 0.4 mg/dL (0.2-1.0); CALCIUM 9.1 mg/dL (8.5-10.3); TOTAL PROTEIN 7.3 g/dL (6.7-8.2)
--- NOTE | 2018-12-18 17:36 | ED Physician Documentation ---
PD HPI DYSPNEA - Stated complaint Stated Complaint: SOA/CP - Chief complaint Chief Complaint: Cardiac - History obtained from History obtained from: Patient - History of Present Illness Timing - onset: How many days ago (10) Timing - onset during: Light activity Timing - details: Gradual onset, Still present (he had knee fracture from torque mechanism and fall. Did not have chest injury. Surgery 10 days ago at [facility]. WOund is good without signs of infection. Has swelling of knee and lower leg. Is on Xarelto as he did have asymptomatic DVT by U/S pre-operatively. He is on crutches and wheelchair. Noted dyspnea since the surgery. Thought it was just the extra work of crutches/etc. Seen by PMD today and noted to have dexreased breath sounds left side. Referred to ER for further evaluation, CXR, labs.) Inciting event(s): Immobilization/travel (has been on crutches due to knee fracture. Surgery 10 days ago. On Xarelto though.). No: URI Improved by: Rest Worsened by: Exertion. No: Coughing Associated symptoms: Unilateral edema (right leg from fracture and surgery). No: Fever, Cough, Hemoptysis, Wheezing Similar symptoms before: Has not had sx before Recently seen: Surgery (10 days ago for tibial plateau fracture.) Review of Systems Constitutional: denies: Fever, Chills Nose: denies: Rhinorrhea / runny nose, Congestion Throat: denies: Sore throat Cardiac: reports: Pedal edema. denies: Palpitations, Calf pain Respiratory: reports: Dyspnea. denies: Cough, Wheezing GI: denies: Abdominal Pain, Nausea, Vomiting, Diarrhea Skin: denies: Rash PD PAST MEDICAL HISTORY - Past Medical History Cardiovascular: None Respiratory: None Neuro: Migraines Endocrine/Autoimmune: None, Systemic lupus erythematosus GI: None : None HEENT: None Psych: None Musculoskeletal: Osteoarthritis, Fatigue, Chronic back pain Derm: None - Past Surgical History Past Surgical History: Yes General: Other Ortho: ACL reconstruction, Rotator cuff repair, Other - Present Medications Home Medications: Ambulatory Orders Medication Instructions Recorded Confirmed Cholecalciferol (Vitamin D3) 2,000 unit PO DAILY 04/22/15 09/24/18 [Vitamin D3] Ibuprofen 800 mg PO BID 04/22/15 09/24/18 Aspirin [Aspir-Low] 2 tab PO DAILY 10/04/15 09/24/18 Cyanocobalamin (Vitamin B-12) 1,000 mcg PO DAILY 10/04/15 09/24/18 [Vitamin B12] Pregabalin [Lyrica] 300 mg PO BID 01/23/18 09/24/18 Albuterol Sulf [Ventolin Hfa 2 - 3 puffs INH Q4HR PRN #1 inhaler 12/18/18 Inhaler] - Allergies Allergies/Adverse Reactions: Allergies Allergy/AdvReac Type Severity Reaction Status Date / Time fluticasone [From Flonase] Allergy Unknown Verified 12/18/18 14:50 - Social History Does the pt smoke?: No Smoking Status: Former smoker Does the pt drink ETOH?: Yes Does the pt have substance abuse?: No - Immunizations Immunizations are current?: Yes - POLST Patient has POLST: No PD ED PE NORMAL - Vitals Vital signs reviewed: Yes - General General: Alert and oriented X 3, No acute distress, Well developed/nourished - HEENT HEENT: Moist mucous membranes, Pharynx benign - Neck Neck: Supple, no meningeal sign, No adenopathy, No bruit - Cardiac Cardiac: RRR, No murmur - Respiratory Respiratory: Clear bilaterally (with decreased sounds left base, but no crackles nor coarse sounds. ) - Abdomen Abdomen: Soft, Non tender - Derm Derm: Normal color, Warm and dry - Extremities Extremities: Other (right knee with healing surgical wound, no infection. Swelling of knee and some edema in lower leg, without calf tenderness. ) - Neuro Neuro: Alert and oriented X 3, No motor deficit, No sensory deficit, Normal speech Results - Vitals Vitals: Oxygen O2 Source Room air Oxygen Flow Rate 99 - Labs Labs: Laboratory Tests 12/18/18 12/18/18 15:13 15:13 WBC 11.2 H RBC 4.08 L Hgb 12.4 L Hct 39.0 L MCV 95.6 H MCH 30.4 MCHC 31.8 L RDW 14.1 Plt Count 370 MPV 9.8 Neut # (Auto) 6.3 Lymph # (Auto) 3.5 [place] # (Auto) 0.8 Eos # (Auto) 0.5 Baso # (Auto) 0.1 Absolute Nucleated RBC 0.00 Nucleated RBC % 0.0 Sodium 142 Potassium 4.1 Chloride 106 Carbon Dioxide 26 Anion Gap 10.0 BUN 15 Creatinine 1.0 Estimated GFR (MDRD) 79 L Glucose 102 H Calcium 9.1 Total Bilirubin 0.4 AST 19 ALT 26 Alkaline Phosphatase 151 H Total Protein 7.3 Albumin 4.2 Globulin 3.1 Albumin/Globulin Ratio 1.4 Lipase 36 - Rads (name of study) chest xray Radiology: Prelim report reviewed, EMP read contemporaneously (elevated hemidiaphragm left. New from few years ago image. ), See rad report chest CT-A Radiology: Prelim report reviewed (no masses. Upper abd organs okay. No PE. No infiltraes. ), See rad report PD MEDICAL DECISION MAKING - ED course Complexity details: reviewed results, considered differential (has dyspnea and some chest tightness post knee surgery/fracture. Has decreased breath sounds left side. Chest xray showing elevated hemidiaphragm. Consider volume loss, such as atelectasis or PE. Could also be phrenic injury from intubation? No subdiaphragmatic mass on CT. No signs of increased intraabd pressure. CT-A done without any PE nor signs of lung problem. ), d/w patient Departure - Departure Disposition: Home, Self Care Clinical Impression: Dyspnea Qualifiers: Dyspnea type: dyspnea on exertion Qualified Code(s): R06.09 - Other forms of dyspnea Clinical Impression: (Ruled Out): Pulmonary edema, Pulmonary emboli Condition: Stable Record reviewed to determine appropriate education?: Yes Instructions: ED Dyspnea Shortness of Breath Follow-Up: Madelyn Vang MD [Primary Care Provider] - Prescriptions: Albuterol Sulf [Ventolin Hfa Inhaler] 2 - 3 puffs INH Q4HR PRN #1 inhaler PRN Reason: Shortness Of Air/Wheezing Comments: Use the albuterol inhaler 2 to 3 puffs 4 times a day for the next 7 to 10 days. Use the incentive spirometer 4 times a day as well. See if that helps improve on your shortness of breath. The scan did not show any signs of blood clots pneumonia fluid buildup or masses or tumors. The elevation of the diaphragm on the left led to the decreased breath sounds on that side. This may be from an irritation of the phrenic nerve from the surgery (the breathing tube). There are potential other causes as well. No signs of a serious cause. Discharge Date/Time: 12/18/18 20:40
[2018-12-18] MEDS ORDERED: SODIUM CHLORIDE 0.9% 1,000 ML IV ONE (17:55)
[2018-12-18] MEDS ORDERED: ALBUTEROL NEB 2.5 MG/3 ML INH STA (17:55)
[2018-12-18] MEDS ORDERED: IOVERSOL 320 100 ML VIAL IVP ONE ×2 (18:11→18:37)
--- NOTE | 2018-12-18 19:23 | CT Report ---
Reason: dyspnea and chest pain; 2 wks post knee surg Procedure Date: 12/18/2018 Accession Number: [id number] / [id number] Procedure: CT - ANGIO CHEST W/WO CPT Code: FULL RESULT: EXAM: CT ANGIOGRAM CHEST EXAM DATE: 12/18/2018 06:33 PM. CLINICAL HISTORY: Dyspnea and chest pain; 2 weeks post knee surgery. COMPARISON: CHEST 2 VIEW 05/31/2018 1:14 PM CHEST 1 VIEW 12/18/2018 3:18 PM. TECHNIQUE: Routine helical imaging was performed through the chest in the pulmonary arterial phase. IV Contrast: 80 mL Optiray 320. Reconstructions: Coronal 3-D MIP reconstructions.Sagittal and coronal. In accordance with CT protocol optimization, one or more of the following dose reduction techniques were utilized for this exam: automated exposure control, adjustment of mA and/or KV based on patient size, or use of iterative reconstructive technique. FINDINGS: Pulmonary Arteries: Diagnostic quality: Adequate through the segmental arteries. No evidence for acute or chronic pulmonary emboli. RV/LV is within normal limits. There is no interventricular septal bowing. There is no reflux of contrast material in the IVC. Lungs/Pleura: There is elevation of the left hemidiaphragm with compressive left lower lobe atelectasis. The lungs are otherwise clear. No pleural effusion or pneumothorax. Mediastinum: Normal. No cardiac enlargement or adenopathy. Thoracic Aorta: Unremarkable. Upper Abdomen: Unremarkable. Other: None. IMPRESSION: 1. No pulmonary embolism. 2. Markedly elevated left hemidiaphragm, new since May 2018 radiographs. RADIA
[2018-12-18 20:39] VITALS: BP 129/86
== END 2018-12-18 20:40 | disposition home or self-care (01) ==
LOC: ED 14:35
DX: R06.09 Other forms of dyspnea (principal); R07.89 Other chest pain; Z98.890 Other specified postprocedural states; Z86.718 Personal history of other venous thrombosis and embolism; Z79.01 Long term (current) use of anticoagulants; Z79.82 Long term (current) use of aspirin; M32.9 Systemic lupus erythematosus, unspecified; Z87.891 Personal history of nicotine dependence
CPT/HCPCS: 36415; 71045; 71275; 80053; 83690; 85025; 93005; 94640; 96360; 99284; Q9967

== ENCOUNTER 2019-04-11 19:02 | Emergency (ER) | payer OTHER ==
[2019-04-11] MEDS ORDERED: KETOROLAC 30 MG/ML VIAL IVP STA (19:25)
[2019-04-11] MEDS ORDERED: SODIUM CHLORIDE 0.9% 1,000 ML IV ONE (19:25)
[2019-04-11] MEDS ORDERED: oxyCODONE 5 MG TABLET PO STA (19:25)
--- NOTE | 2019-04-11 19:30 | ED Physician Documentation ---
<Luther Garrido M - Last Filed: 04/11/19 22:00> PD HPI LOWER EXT INJURY - Stated complaint Stated Complaint: GLF - RT LEG,BACK,NECK PAIN - Chief complaint Chief Complaint: Ext Problem - History obtained from History obtained from: Patient - History of Present Illness PD HPI LOW EXT INJURY LOCATION: Other (49-year-old gentleman with history of lupus anticoagulants, sustained a tibial plateau fracture around November and had that fixed at [facility]. In the interim was found to have a new hemidiaphragmatic elevation on the left but [facility] showing [facility]atic function. Anyway he was in his usual state of health, but has had increasing cough recently and today started having fevers and shaking chills, and before that he fell going down the stairs having an eversion injury of his right knee where he had the previous tibial plateau fracture done with much more pain now especially on the medial joint line of the knee and radiating down towards the ankle. He also hurt his neck. No head injury.) Review of Systems Constitutional: reports: Fever, Chills Nose: reports: Rhinorrhea / runny nose Throat: denies: Sore throat Cardiac: denies: Chest pain / pressure, Palpitations Respiratory: reports: Dyspnea (ongoing for months), Cough GI: denies: Abdominal Pain, Nausea, Diarrhea PD PAST MEDICAL HISTORY - Past Medical History Cardiovascular: None Respiratory: None Neuro: Migraines Endocrine/Autoimmune: None, Systemic lupus erythematosus GI: None : None HEENT: None Psych: None Musculoskeletal: Osteoarthritis, Fatigue, Chronic back pain Derm: None - Past Surgical History Past Surgical History: Yes General: Other Ortho: ACL reconstruction, Rotator cuff repair, Other - Present Medications Home Medications: Ambulatory Orders Medication Instructions Recorded Confirmed Cholecalciferol (Vitamin D3) 2,000 unit PO DAILY 04/22/15 09/24/18 [Vitamin D3] Cyanocobalamin (Vitamin B-12) 1,000 mcg PO DAILY 10/04/15 09/24/18 [Vitamin B12] Pregabalin [Lyrica] 300 mg PO BID 01/23/18 09/24/18 Atorvastatin Calcium 04/11/19 Hydrocodone/Acetaminophen [[place] 1 each PO Q6HR #7 tablet 04/11/19 5-325 Tablet] Rivaroxaban [Xarelto] 04/11/19 - Allergies Allergies/Adverse Reactions: Allergies Allergy/AdvReac Type Severity Reaction Status Date / Time fluticasone [From Flonase] Allergy Unknown Verified 12/18/18 14:50 - Social History Does the pt smoke?: No Smoking Status: Former smoker Does the pt drink ETOH?: Yes Does the pt have substance abuse?: No - Immunizations Immunizations are current?: Yes - POLST Patient has POLST: No PD ED PE NORMAL - Vitals Vital signs reviewed: Yes (Febrile and tachycardic) - General General: Alert and oriented X 3, No acute distress, Well developed/nourished - HEENT HEENT: PERRL, EOMI - Neck Neck: Other (Mild upper C-spine tenderness without limited range of motion) - Cardiac Cardiac: RRR, No murmur - Respiratory Respiratory: No respiratory distress, Other (Slightly diminished at the left base without focal findings) - Abdomen Abdomen: Non tender - Back Back: No CVA TTP, No spinal TTP - Derm Derm: Normal color, Warm and dry - Extremities Extremities: Other (Well-healed significant surgical scars on both sides of the right knee and tender over the medial and inferior joint lines of the knee without deformity. There is some tenderness of the tibia going down too.) - Neuro Neuro: Alert and oriented X 3, Normal speech Results - Rads (name of study) CT C spine Radiology: EMP read contemporaneously (no frx) XR Tib fib and R knee Radiology: EMP read contemporaneously (hardware ok, NAD) CXR Radiology: EMP read contemporaneously (elevated hemidiaphragm, no pna) PD MEDICAL DECISION MAKING - ED course ED course: 49-year-old gentleman presents after a fall today, recent tibial plateau surgery with reinjury there and also neck pain. He is also noted to be tachycardic and febrile. Work-up demonstrates a CT scan of the neck without acute bony injury, also x-rays of the leg which are the same and an x-ray of the chest without pneumonia. A negative flu swab. Modestly elevated white blood cell, negative urinalysis. He does have very mild elevation of bilirubin and lipase and on reexamination he had developed some right upper quadrant tenderness questioning the right upper quadrant as the source of the fever. An ultrasound was ordered. Signout to Dr. Rosenberg at shift change at 10 PM to follow-up on the ultrasound, from my perspective he looks very well and is eager to be discharged, if his ultrasound is without cholecystitis he could be discharged with close follow-up precautions, obviously if he has cholecystitis surgeon will need to be consulted. Departure - Departure Disposition: 01 Home, Self Care Clinical Impression: Fall Qualifiers: Encounter type: initial encounter Qualified Code(s): W19.XXXA - Unspecified fall, initial encounter Knee MCL sprain Qualifiers: Encounter type: initial encounter Laterality: right Qualified Code(s): S83.411A - Sprain of medial collateral ligament of right knee, initial encounter Neck injury Qualifiers: Encounter type: initial encounter Qualified Code(s): S19.9XXA - Unspecified injury of neck, initial encounter Fever Qualifiers: Fever type: due to other condition Qualified Code(s): R50.81 - Fever presenting with conditions classified elsewhere Condition: Good Instructions: ED Fever Unconf Cause, ED Sprain Knee, ED Sprain Strain Neck Follow-Up: Madelyn Vang MD [Primary Care Provider] - Tomorrow Prescriptions: Hydrocodone/Acetaminophen [[place] 5-325 Tablet] 1 each PO Q6HR #7 tablet Comments: Come back in 24 hours if not better, anytime for new or worsening symptoms. <Rico Rosenberg - Last Filed: 04/12/19 00:04> Results - Vitals Vitals: Vital Signs - 24 hr 04/11/19 04/11/19 04/11/19 19:10 21:13 23:47 Temperature 39.1 C H 39.1 C H 37.5 C Heart Rate 124 H 97 97 Respiratory 22 20 20 Rate Blood Pressure 117/68 106/69 104/68 O2 Saturation 99 96 98 Oxygen O2 Source Room air - Labs Labs: Laboratory Tests 04/11/19 04/11/19 04/11/19 19:50 19:50 19:50 WBC 16.6 H RBC 4.94 Hgb 14.7 Hct 45.0 MCV 91.1 MCH 29.8 MCHC 32.7 RDW 14.3 Plt Count 245 MPV 10.6 Neut # (Auto) 14.4 H Lymph # (Auto) 1.2 L Ralls # (Auto) 0.8 Eos # (Auto) 0.0 Baso # (Auto) 0.1 Absolute Nucleated RBC 0.00 Nucleated RBC % 0.0 Sodium 135 Potassium 3.7 Chloride 98 L Carbon Dioxide 25 Anion Gap 12.0 BUN 11 Creatinine 1.0 Estimated GFR (MDRD) 79 L Glucose 120 H Lactic Acid Calcium 8.8 Total Bilirubin 1.1 H AST 24 ALT 27 Alkaline Phosphatase 101 Total Protein 7.2 Albumin 4.3 Globulin 2.9 Albumin/Globulin Ratio 1.5 Lipase 94 H Urine Color Urine Clarity Urine pH Ur Specific [place] Urine Protein Urine Glucose (UA) Urine Ketones Urine Occult Blood Urine Nitrite Urine Bilirubin Urine Urobilinogen Ur Leukocyte Esterase Ur Microscopic Review Urine Culture Comments Influenza A (Rapid) Negative Influenza B (Rapid) Negative 04/11/19 04/11/19 20:00 21:04 WBC RBC Hgb Hct MCV MCH MCHC RDW Plt Count MPV Neut # (Auto) Lymph # (Auto) Ralls # (Auto) Eos # (Auto) Baso # (Auto) Absolute Nucleated RBC Nucleated RBC % Sodium Potassium Chloride Carbon Dioxide Anion Gap BUN Creatinine Estimated GFR (MDRD) Glucose Lactic Acid 2.1 Calcium Total Bilirubin AST ALT Alkaline Phosphatase Total Protein Albumin Globulin Albumin/Globulin Ratio Lipase Urine Color YELLOW Urine Clarity CLEAR Urine pH 6.0 Ur Specific [place] 1.025 Urine Protein NEGATIVE Urine Glucose (UA) NEGATIVE Urine Ketones NEGATIVE Urine Occult Blood NEGATIVE Urine Nitrite NEGATIVE Urine Bilirubin NEGATIVE Urine Urobilinogen 0.2 (NORMAL) Ur Leukocyte Esterase NEGATIVE Ur Microscopic Review NOT INDICATED Urine Culture Comments NOT INDICATED Influenza A (Rapid) Influenza B (Rapid) PD MEDICAL DECISION MAKING - ED course Complexity details: other (patient was signed out to me at shift change by dr garrido pending abd us ruq, There is no evidence of acute cholecystitis setting an extensive discussion with the patient in regards to diet did not have an answer or a source of his fever the patient reports he would like to be discharged home I did offer to do a vision additional evaluation and testing and observation however the patient would like to follow-up with his physician at home. patient has medical decision making capability and capacity. )
[2019-04-11 20:08] LABS: BASOPHILS # (AUTO) 0.1 10^3/uL (0.0-0.1); BASOPHILS % (AUTO) 0.4 %; EOSINOPHILS % (AUTO) 0.2 %; HGB - HEMOGLOBIN 14.7 g/dL (14.0-18.0); LYMPHOCYTES # (AUTO) 1.2 10^3/uL (1.5-3.5); LYMPHOCYTES % (AUTO) 7.3 %; MEAN CORPUSCULAR HEMOGLOBIN 29.8 pg (27.0-31.0); MEAN CORPUSCULAR HGB CONC 32.7 g/dL (32.0-36.0); MEAN CORPUSCULAR VOLUME 91.1 fL (80.0-94.0); MEAN PLATELET VOLUME 10.6 fL (7.4-11.4); MONOCYTES # (AUTO) 0.8 10^3/uL (0.0-1.0); MONOCYTES % (AUTO) 4.8 %; NEUTROPHILS # (AUTO) 14.4 10^3/uL (1.5-6.6); NEUTROPHILS % (AUTO) 86.6 %; PLT - PLATELET COUNT 245 10^3/uL (130-450); RED BLOOD COUNT 4.94 10^6/uL (4.70-6.10); RED CELL DISTRIBUTION WIDTH 14.3 % (12.0-15.0); WHITE BLOOD COUNT 16.6 x10^3/uL (4.8-10.8)
[2019-04-11 20:22] LABS: ALBUMIN 4.3 g/dL (3.2-5.5); ALBUMIN/GLOBULIN RATIO 1.5 (1.0-2.2); BILIRUBIN,TOTAL 1.1 mg/dL (0.2-1.0); CALCIUM 8.8 mg/dL (8.5-10.3); TOTAL PROTEIN 7.2 g/dL (6.7-8.2)
--- NOTE | 2019-04-11 20:51 | CT Report ---
Reason: neck injury Procedure Date: 04/11/2019 Accession Number: [id number] / [id number] Procedure: CT - CERVICAL SPINE WO CPT Code: Final Report FULL RESULT: EXAM: CT CERVICAL SPINE WITHOUT CONTRAST DATE: 04/11/2019 08:26 PM. HISTORY: Trauma, pain. COMPARISONS: CERVICAL SPINE W/WO 01/20/2016 8:00 AM XR CERVICAL SPINE MIN 4 VIEWS 11/19/2010 11:39 AM. TECHNIQUE: Thin-section axial images were acquired of the cervical spine without contrast. Post-processing: Coronal and sagittal reformats. Other: None. In accordance with CT protocol optimization, one or more of the following dose reduction techniques were utilized for this exam: automated exposure control, adjustment of mA and/or KV based on patient size, or use of iterative reconstructive technique. FINDINGS: Alignment: No scoliosis or spondylolisthesis. Bones: No definite fracture or other bone lesion. Middle plate secured anterior surface of spine by means of screws in the C4, C5, and C6 vertebral bodies with additional device at C6-C7 with screws extending into the C6 and C7 vertebral bodies. Interspace Levels/Facets: Intervertebral disk devices from C4-C7. Disk space heights preserved. Mild to moderate degenerative changes at C2-C3 and C3-C4, right more than left. Musculature: Unremarkable. Other: The paravertebral and prevertebral soft tissues are unremarkable. The lung apices are clear. IMPRESSION: Postoperative and other chronic findings. No acute disease. RADIA
--- NOTE | 2019-04-11 20:57 | XRAY Report ---
Reason: knee/leg injury Procedure Date: 04/11/2019 Accession Number: [id number] / [id number] Procedure: XR - Knee 4 View RT CPT Code: Final Report FULL RESULT: EXAM: RIGHT KNEE RADIOGRAPHY EXAM DATE: 04/11/2019 08:49 PM. CLINICAL HISTORY: Knee/leg injury. COMPARISON: KNEE 2 VIEW RT 01/30/2018 1:57 PM LEG LOWER RT 04/11/2019 8:13 PM. TECHNIQUE: 4 views. FINDINGS: Bones: Patient has had previous proximal tibial fracture, and has undergone interval open reduction internal fixation. Plate along the lateral proximal tibia, with trans-diaphyseal, metaphyseal, epiphyseal screws. No abnormal lucency around the hardware. Screws are intact. There is no acute fracture. An anchor is present in the lateral femoral epicondyle and in the proximal tibia, likely from anterior cruciate ligament repair. Joints: Normal. No effusion. No subluxations. Soft Tissues: Normal. No soft tissue swelling. IMPRESSION: Status post ORIF proximal tibial fracture, no acute abnormality. No effusion. RADIA
--- NOTE | 2019-04-11 21:10 | XRAY Report ---
Reason: cough dyspnea Procedure Date: 04/11/2019 Accession Number: [id number] / [id number] Procedure: XR - Chest 2 View X-Ray CPT Code: 44925 Final Report FULL RESULT: EXAM: CHEST RADIOGRAPHY EXAM DATE: 04/11/2019 08:45 PM. CLINICAL HISTORY: Cough and dyspnea. COMPARISON: CHEST 1 VIEW 12/18/2018 3:18 PM. TECHNIQUE: 2 views. FINDINGS: Lungs/Pleura: No focal opacities evident. No pleural effusion. No pneumothorax. Decreased volumes. Mediastinum: Heart and mediastinal contours are unremarkable. Other: None. IMPRESSION: Low lung volumes otherwise no acute disease. RADIA
--- NOTE | 2019-04-11 21:11 | XRAY Report ---
Reason: knee/leg injury Procedure Date: 04/11/2019 Accession Number: [id number] / [id number] Procedure: XR - Tib/Fib RT CPT Code: Final Report FULL RESULT: EXAM: RIGHT TIBIA/FIBULA RADIOGRAPHY EXAM DATE: 04/11/2019 08:49 PM. CLINICAL HISTORY: Knee/leg injury. COMPARISON: None. TECHNIQUE: 3 views. FINDINGS: Bones: Status post ORIF proximal tibia. Described previously on the knee series. No abnormal lucency around the hardware. Screws are intact. The distal tibia and fibula are intact, no acute fractures. Joints: The visualized knee and ankle joints are unremarkable. No effusions. Soft Tissues: Normal. No soft tissue swelling. IMPRESSION: Status post ORIF proximal tibia. No acute fractures. RADIA
[2019-04-11 21:12] LABS: BILIRUBIN,URINE NEGATIVE (NEGATIVE); GLUCOSE, URINE (UA) NEGATIVE (NEGATIVE); KETONES,URINE (UA) NEGATIVE (NEGATIVE); LEUKOCYTE ESTERASE, URINE NEGATIVE (NEGATIVE); NITRITE,URINE NEGATIVE (NEGATIVE); OCCULT BLOOD,URINE NEGATIVE (NEGATIVE); PROTEIN,URINE NEGATIVE (NEGATIVE); UROBILINOGEN,URINE 0.2 (NORMAL) E.U./dL (NORMAL)
[2019-04-11] MEDS ORDERED: ACETAMINOPHEN 325 MG TABLET PO STA (21:12)
[2019-04-11 21:14] LABS: CLARITY,URINE CLEAR (CLEAR)
--- NOTE | 2019-04-11 22:46 | Ultrasound Report ---
Reason: abd pain RUQ TTP Procedure Date: 04/11/2019 Accession Number: [id number] / [id number] Procedure: US - Abdomen Limited CPT Code: Final Report FULL RESULT: EXAM: ABDOMEN ULTRASOUND LIMITED, RUQ EXAM DATE: 04/11/2019 10:21 PM. CLINICAL HISTORY: Abdomen pain. Right upper quadrant tender to palpation. COMPARISON: ABDOMEN/PELVIS W/ 07/10/2013 4:12 PM. TECHNIQUE: Real-time scanning was performed with static images obtained. FINDINGS: Liver: Normal in size with hyperechoic echotexture. 17.7 cm. Main portal vein flow: Hepatopetal. Gallbladder: Contracted. No stones, wall thickening, or sonographic Ovalles's sign. Biliary System: CBD measures 6 mm. No intrahepatic or extrahepatic ductal dilatation. Other: The visualized pancreas and right kidney are unremarkable. No free fluid. IMPRESSION: 1. Hepatic steatosis. 2. Unremarkable contracted gallbladder and ducts. RADIA
[2019-04-11 23:48] VITALS: BP 104/68
== END 2019-04-12 00:02 | disposition home or self-care (01) ==
LOC: ED 19:02
DX: S83.411A Sprain of medial collateral ligament of right knee, initial encounter (principal); S19.9XXA Unspecified injury of neck, initial encounter; W10.9XXA Fall (on) (from) unspecified stairs and steps, initial encounter; R10.11 Right upper quadrant pain; M32.9 Systemic lupus erythematosus, unspecified; Z79.01 Long term (current) use of anticoagulants; Z87.891 Personal history of nicotine dependence
CPT/HCPCS: 36415; 71046; 72125; 76705; 80053; 81001; 81003; 83605; 83690; 85025; 87040; 87086; 87275; 87276; 96361; 96374; 99284

== ENCOUNTER 2019-04-12 10:02 | Emergency (ER) | payer OTHER ==
[2019-04-12] MEDS ORDERED: cefTRIAXone 1 GM in SODIUM CHLORIDE 0.9% MINIBAG 100 ML IV STA (10:50)
[2019-04-12] MEDS ORDERED: DEXAMETHASONE 10 MG/ML VIAL IVP STA (10:50)
[2019-04-12] MEDS ORDERED: SODIUM CHLORIDE 0.9% 1,000 ML IV ONE (10:50)
--- NOTE | 2019-04-12 10:52 | ED Physician Documentation ---
PD HPI HEENT - Stated complaint Stated Complaint: FEVER,VOMITING,DIZZY - Chief complaint Chief Complaint: Fever - History obtained from History obtained from: Patient, Family - History of Present Illness Timing - onset: Yesterday Timing - duration: Days (1) Timing - details: Gradual onset, Still present Location: Right ear, Left ear, Sinuses, Nose Improves: Medication Worsens: Swalllowing Associated symptoms: Fever, Congestion, Headache Similar symptoms before: Diagnosis (URI) Recently seen: Emergency Dept - Additional information Additional information: 49-year-old male had a fall yesterday injuring his right knee and he was seen in the emergency department and was noted to have high fever. He states that yesterday afternoon he began to have some chills and felt warm he felt his teeth chattering he has not had a cough he does have some congestion he has a lot of ringing in his ears. Today he is developed some nausea and has been a bit unsteady on his feet. Review of Systems Constitutional: reports: Fever, Chills, Myalgias, Fatigue Eyes: denies: Decreased vision Ears: reports: Tinnitus/ringing Nose: reports: Rhinorrhea / runny nose, Congestion Throat: denies: Sore throat Cardiac: denies: Chest pain / pressure, Palpitations Respiratory: denies: Dyspnea, Cough GI: reports: Nausea, Vomiting. denies: Abdominal Pain : denies: Dysuria, Frequency Skin: denies: Rash, Lesions Musculoskeletal: reports: Extremity pain. denies: Neck pain, Back pain Neurologic: denies: Generalized weakness, Focal weakness, Numbness PD PAST MEDICAL HISTORY - Past Medical History Cardiovascular: None Respiratory: None Neuro: Migraines Endocrine/Autoimmune: None, Systemic lupus erythematosus GI: None : None HEENT: None Psych: None Musculoskeletal: Osteoarthritis, Fatigue, Chronic back pain Derm: None - Past Surgical History Past Surgical History: Yes General: Other Ortho: ACL reconstruction, Rotator cuff repair, Other - Present Medications Home Medications: Ambulatory Orders Medication Instructions Recorded Confirmed Cholecalciferol (Vitamin D3) 2,000 unit PO DAILY 04/22/15 09/24/18 [Vitamin D3] Cyanocobalamin (Vitamin B-12) 1,000 mcg PO DAILY 10/04/15 09/24/18 [Vitamin B12] Pregabalin [Lyrica] 300 mg PO BID 01/23/18 09/24/18 Atorvastatin Calcium 04/11/19 Hydrocodone/Acetaminophen [[place] 1 each PO Q6HR #7 tablet 04/11/19 5-325 Tablet] Rivaroxaban [Xarelto] 04/11/19 Amox/Clav 875/125 [Augmentin] 1 each PO Q12H #20 tablet 04/12/19 - Allergies Allergies/Adverse Reactions: Allergies Allergy/AdvReac Type Severity Reaction Status Date / Time fluticasone [From Flonase] Allergy Unknown Verified 12/18/18 14:50 - Social History Does the pt smoke?: No Smoking Status: Former smoker Does the pt drink ETOH?: Yes Does the pt have substance abuse?: No - Immunizations Immunizations are current?: Yes - POLST Patient has POLST: No PD ED PE NORMAL - Vitals Vital signs reviewed: Yes (tachy and hypotensive ) - General General: Alert and oriented X 3, No acute distress, Well developed/nourished - HEENT HEENT: Atraumatic, PERRL, EOMI, Pharynx benign, Other - Neck Neck: Supple, no meningeal sign, No bony TTP - Cardiac Cardiac: No murmur, Other (Tachycardia to 110) - Respiratory Respiratory: No respiratory distress, Clear bilaterally - Abdomen Abdomen: Soft, Non tender, Non distended, No organomegaly - Back Back: No CVA TTP, No spinal TTP - Derm Derm: Normal color, Warm and dry, No rash - Extremities Extremities: No deformity, No edema, No calf tenderness / cord, Other (The right knee is tender to the medial surface there are multiple surgical scars that appear healed without signs of inflammation.) - Neuro Neuro: Alert and oriented X 3, director of safety 2-12 intact, No motor deficit, No sensory deficit, Normal speech Eye Opening: Spontaneous Motor: Obeys Commands Verbal: Oriented GCS Score: 15 - Psych Psych: Normal mood, Normal affect Results - Vitals Vitals: Vital Signs - 24 hr 04/12/19 04/12/19 10:05 11:14 Temperature 39.5 C H 39.3 C H Heart Rate 116 H 99 Respiratory 18 18 Rate Blood Pressure 96/52 L 105/72 O2 Saturation 96 97 Oxygen O2 Source Room air - Labs Labs: Laboratory Tests 04/12/19 04/12/19 11:00 11:00 WBC 13.2 H RBC 4.18 L Hgb 12.2 L Hct 37.7 L MCV 90.2 MCH 29.2 MCHC 32.4 RDW 14.5 Plt Count 185 MPV 10.6 Neut # (Auto) 11.1 H Lymph # (Auto) 1.1 L [place] # (Auto) 0.9 Eos # (Auto) 0.0 Baso # (Auto) 0.0 Absolute Nucleated RBC 0.00 Nucleated RBC % 0.0 Sodium 135 Potassium 3.4 L Chloride 102 Carbon Dioxide 23 Anion Gap 10.0 BUN 18 Creatinine 1.2 Estimated GFR (MDRD) 64 L Glucose 108 H Calcium 7.8 L Total Bilirubin 1.0 AST 16 ALT 20 Alkaline Phosphatase 73 Total Protein 5.9 L Albumin 3.5 Globulin 2.4 Albumin/Globulin Ratio 1.5 Lipase 27 Procedures - IVC sono (time) 1050 Bedside IVC sono: IVC measures (cm) (1.02), IVC collapsed c insp (cm) (complete), Dehydration (est 1-2 liter deficit) PD MEDICAL DECISION MAKING - ED course Complexity details: reviewed old records, reviewed results, re-evaluated patient, considered differential, d/w patient, d/w family ED course: 49-year-old male seen in the emergency department yesterday for a fall with injury to his right knee was found to have fever yesterday his work-up was negative including a chest x-ray and influenza swab. Today on examination he is found to have otitis media bilaterally and he is a bit dehydrated. He is administered intravenous saline and intravenous Rocephin and dexamethasone. Departure - Departure Disposition: 01 Home, Self Care Clinical Impression: Dehydration Otitis media Qualifiers: Otitis media type: suppurative Chronicity: acute Laterality: bilateral Recurrence: non-recurrent Spontaneous tympanic membrane rupture: without spontaneous rupture Qualified Code(s): H66.003 - Acute suppurative otitis media without spontaneous rupture of ear drum, bilateral Condition: Stable Instructions: ED Dehydration, ED Otitis Media Acute Adult Follow-Up: Madelyn Vang MD [Primary Care Provider] - Prescriptions: Amox/Clav 875/125 [Augmentin] 1 each PO Q12H #20 tablet Forms: Activity restrictions
[2019-04-12 11:14] LABS: BASOPHILS % (AUTO) 0.2 %; EOSINOPHILS % (AUTO) 0.1 %; HGB - HEMOGLOBIN 12.2 g/dL (14.0-18.0); LYMPHOCYTES # (AUTO) 1.1 10^3/uL (1.5-3.5); LYMPHOCYTES % (AUTO) 8.1 %; MEAN CORPUSCULAR HEMOGLOBIN 29.2 pg (27.0-31.0); MEAN CORPUSCULAR HGB CONC 32.4 g/dL (32.0-36.0); MEAN CORPUSCULAR VOLUME 90.2 fL (80.0-94.0); MEAN PLATELET VOLUME 10.6 fL (7.4-11.4); MONOCYTES # (AUTO) 0.9 10^3/uL (0.0-1.0); NEUTROPHILS # (AUTO) 11.1 10^3/uL (1.5-6.6); NEUTROPHILS % (AUTO) 83.7 %; PLT - PLATELET COUNT 185 10^3/uL (130-450); RED BLOOD COUNT 4.18 10^6/uL (4.70-6.10); RED CELL DISTRIBUTION WIDTH 14.5 % (12.0-15.0); WHITE BLOOD COUNT 13.2 x10^3/uL (4.8-10.8)
[2019-04-12 11:15] VITALS: BP 105/72
[2019-04-12 11:34] LABS: ALBUMIN 3.5 g/dL (3.2-5.5); ALBUMIN/GLOBULIN RATIO 1.5 (1.0-2.2); CALCIUM 7.8 mg/dL (8.5-10.3); CREATININE 1.2 mg/dL (0.6-1.2); TOTAL PROTEIN 5.9 g/dL (6.7-8.2)
[2019-04-12] MEDS ORDERED: POTASSIUM CHLORIDE 20 MEQ TABLET PO STA (11:49)
== END 2019-04-12 12:50 | disposition home or self-care (01) ==
LOC: ED 10:02
DX: E86.0 Dehydration (principal); H66.003 Acute suppurative otitis media without spontaneous rupture of ear drum, bilateral; S83.411A Sprain of medial collateral ligament of right knee, initial encounter; S19.9XXA Unspecified injury of neck, initial encounter; W10.9XXA Fall (on) (from) unspecified stairs and steps, initial encounter; R10.11 Right upper quadrant pain; M32.9 Systemic lupus erythematosus, unspecified; Z79.01 Long term (current) use of anticoagulants; Z87.891 Personal history of nicotine dependence
CPT/HCPCS: 36415; 71046; 72125; 73564; 73590; 76705; 80053; 81003; 83605; 83690; 85025; 87040; 87275; 87276; 96361; 96365; 96374; 96375; 99284; A9270

== ENCOUNTER 2019-04-17 09:13 | Emergency (ER) | payer OTHER ==
--- NOTE | 2019-04-17 10:54 | ED Physician Documentation ---
PD HPI SKIN - Stated complaint Stated Complaint: RT LEG PX - Chief complaint Chief Complaint: Ext Problem - History obtained from History obtained from: Patient - History of Present Illness Timing - onset: How many days ago (He had fever several days ago and subsequently developed redness swelling and now drainage in the right lower leg around the lower aspect of the surgical scar from a prior plateau fracture repair. He states the fever has decreased and has not had any last couple of days. He still feels general malaise and some chills.) Timing - duration: Days Timing - details: Gradual onset, Still present Location: RLE Quality / character: Painful, Discolored, Swelling, Draining Associated symptoms: Fever, Myalgias. No: Headache, Facial swelling, Dyspnea, N/V/D Recently seen: Emergency Dept (He was seen a few days ago after a fall with some soreness of the right anterior lower leg. He denied any impact to the area nor any abrasions or lacerations. He had a twisting type maneuver. An x-ray was done and showed normal hardware without any signs of fracture. He was noted to have a fever at that time but no obvious source. He came back subsequently the next day with a fever again and was diagnosed with an ear infection and placed on Kajal biotic orally. He states since that time he has had development of redness swelling and increased pain in the lower scar area on the proximal lower leg on the right leg. He had had repair of a tibial plateau fracture a couple of months ago in that site and had healed well without any infection or problems. He had developed a blood clot subsequently and is on Xarelto but feels that that swelling has improved.) Review of Systems Constitutional: reports: Fever, Chills Nose: denies: Rhinorrhea / runny nose, Congestion Throat: denies: Sore throat Respiratory: denies: Cough GI: denies: Abdominal Pain, Nausea, Vomiting, Diarrhea : denies: Dysuria, Frequency Skin: reports: Lesions (He is having redness and swelling with now draining sore in the right anterior lower leg just over the last couple of days.) Musculoskeletal: denies: Neck pain, Back pain PD PAST MEDICAL HISTORY - Past Medical History Cardiovascular: None Respiratory: None Neuro: Migraines Endocrine/Autoimmune: None, Systemic lupus erythematosus GI: None : None HEENT: None Psych: None Musculoskeletal: Osteoarthritis, Fatigue, Chronic back pain Derm: None - Past Surgical History Past Surgical History: Yes General: Other Ortho: ACL reconstruction, Rotator cuff repair, Other - Present Medications Home Medications: Ambulatory Orders Medication Instructions Recorded Confirmed Cholecalciferol (Vitamin D3) 2,000 unit PO DAILY 04/22/15 09/24/18 [Vitamin D3] Cyanocobalamin (Vitamin B-12) 1,000 mcg PO DAILY 10/04/15 09/24/18 [Vitamin B12] Pregabalin [Lyrica] 300 mg PO BID 01/23/18 09/24/18 Atorvastatin Calcium 04/11/19 Hydrocodone/Acetaminophen [[place] 1 each PO Q6HR #7 tablet 04/11/19 5-325 Tablet] Rivaroxaban [Xarelto] 04/11/19 Amox/Clav 875/125 [Augmentin] 1 each PO Q12H #20 tablet 04/12/19 - Allergies Allergies/Adverse Reactions: Allergies Allergy/AdvReac Type Severity Reaction Status Date / Time fluticasone [From Flonase] Allergy Unknown Verified 12/18/18 14:50 - Social History Does the pt smoke?: No Smoking Status: Former smoker Does the pt drink ETOH?: Yes Does the pt have substance abuse?: No - Immunizations Immunizations are current?: Yes - POLST Patient has POLST: No PD ED PE NORMAL - Vitals Vital signs reviewed: Yes - General General: Alert and oriented X 3, Well developed/nourished - HEENT HEENT: Ears normal, Moist mucous membranes, Pharynx benign - Neck Neck: Supple, no meningeal sign, No adenopathy - Cardiac Cardiac: RRR, No murmur - Respiratory Respiratory: Clear bilaterally - Abdomen Abdomen: Soft, Non tender - Back Back: No CVA TTP - Derm Derm: Normal color, Warm and dry, Other (There is redness and tenderness with some firmness of the soft tissue in the right anterior upper lower leg. There is slight area of drainage. This is cultured. There is tenderness and a sizable area about 8 x 5 cm without much raising of the tissue. I do not feel fluctuance per se. There is no posterior calf tenderness. There is no edema in the lower leg or ankle.) - Extremities Extremities: No edema, No calf tenderness / cord - Neuro Neuro: Alert and oriented X 3, No motor deficit, No sensory deficit Results - Vitals Vitals: Vital Signs - 24 hr 04/17/19 04/17/19 09:28 14:40 Temperature 36.1 C L 36.5 C Heart Rate 92 75 Respiratory 18 18 Rate Blood Pressure 123/89 H 120/78 O2 Saturation 98 100 Oxygen O2 Source Room air - Labs Labs: Microbiology 04/17/19 11:26 Wound Culture - Preliminary Leg - Right Laboratory Tests 04/17/19 04/17/19 04/17/19 11:56 11:56 11:56 WBC 13.2 H RBC 4.43 L Hgb 13.0 L Hct 40.6 L MCV 91.6 MCH 29.3 MCHC 32.0 RDW 14.5 Plt Count 287 MPV 10.1 Neut # (Auto) 9.6 H Lymph # (Auto) 2.2 [place] # (Auto) 0.8 Eos # (Auto) 0.3 Baso # (Auto) 0.1 Absolute Nucleated RBC 0.00 Nucleated RBC % 0.0 ESR 68 H PT INR APTT Sodium 137 Potassium 4.4 Chloride 101 Carbon Dioxide 25 Anion Gap 11.0 BUN 15 Creatinine 0.8 Estimated GFR (MDRD) 102 Glucose 95 Calcium 8.6 Total Bilirubin 1.0 AST 35 ALT 58 Alkaline Phosphatase 80 Total Protein 7.0 Albumin 3.4 Globulin 3.6 Albumin/Globulin Ratio 0.9 L Lipase 37 04/17/19 11:56 WBC RBC Hgb Hct MCV MCH MCHC RDW Plt Count MPV Neut # (Auto) Lymph # (Auto) [place] # (Auto) Eos # (Auto) Baso # (Auto) Absolute Nucleated RBC Nucleated RBC % ESR PT 23.0 H INR 2.1 H APTT 37.8 H Sodium Potassium Chloride Carbon Dioxide Anion Gap BUN Creatinine Estimated GFR (MDRD) Glucose Calcium Total Bilirubin AST ALT Alkaline Phosphatase Total Protein Albumin Globulin Albumin/Globulin Ratio Lipase PD MEDICAL DECISION MAKING - ED course Complexity details: reviewed results (CT scan showed a subcutaneous abscess and a large flat distribution. It does not appear to be down around the hardware and no signs of bone involvement.), re-evaluated patient (IV antibiotics were given to augment strep coverage with Rocephin and also to provide staph coverage with clindamycin. He is given pain medicine as well as anti-inflammatory.), considered differential (He did not have any wounds at the site. Infection s eems to be centered around the lower part of the surgical scar and is subcutaneous and does not appear to be down at the hardware of the bone. However he was feeling pain and had a fever prior to any development of redness or swelling at the site so I presume the infection started deeper and is now coming to the surface. I do feel he needs orthopedic consultation for this. We have no orthopedics available at our hospital at this time. He had had surgery done at [facility] so I contacted his the transfer center for transfer to that area.), d/w patient ED course: This is a deeper subcutaneous infection with a broad distribution 8 x 5 cm through the subcutaneous space. It is close to prior surgical repair with hardware and my concern would be some extension to that. I think he needs orthopedic evaluation and likely debridement or at least drainage with evaluation of the hardware site. We do not have orthopedics available here this week at our facility. I contacted [facility] and accepted transfer. Departure - Departure Disposition: 02 Transfer Acute Care Hosp Clinical Impression: Abscess of right lower leg Post-operative infection Qualifiers: Encounter type: initial encounter Postoperative infection type: deep incisional surgical site Qualified Code(s): T81.42XA - Infection following a procedure, deep incisional surgical site, initial encounter Condition: Stable Record reviewed to determine appropriate education?: Yes
[2019-04-17] MEDS ORDERED: SODIUM CHLORIDE 0.9% 1,000 ML IV ONE (11:40)
[2019-04-17] MEDS ORDERED: MORPHINE 2 MG/ML CARPUJECT IVP STA ×2 (11:40→18:23)
[2019-04-17] MEDS ORDERED: KETOROLAC 15 MG/ML VIAL IVP STA (11:40)
[2019-04-17] MEDS ORDERED: CLINDAMYCIN 900 MG/50 ML 50 ML IV ONE (11:41)
[2019-04-17] MEDS ORDERED: IOVERSOL 320 100 ML VIAL IVP ONE ×2 (11:55→13:04)
[2019-04-17 12:00] LABS: BASOPHILS # (AUTO) 0.1 10^3/uL (0.0-0.1); BASOPHILS % (AUTO) 0.5 %; EOSINOPHILS # (AUTO) 0.3 10^3/uL (0.0-0.7); EOSINOPHILS % (AUTO) 1.9 %; LYMPHOCYTES # (AUTO) 2.2 10^3/uL (1.5-3.5); LYMPHOCYTES % (AUTO) 16.6 %; MEAN CORPUSCULAR HEMOGLOBIN 29.3 pg (27.0-31.0); MEAN CORPUSCULAR VOLUME 91.6 fL (80.0-94.0); MEAN PLATELET VOLUME 10.1 fL (7.4-11.4); MONOCYTES # (AUTO) 0.8 10^3/uL (0.0-1.0); NEUTROPHILS # (AUTO) 9.6 10^3/uL (1.5-6.6); PLT - PLATELET COUNT 287 10^3/uL (130-450); RED BLOOD COUNT 4.43 10^6/uL (4.70-6.10); RED CELL DISTRIBUTION WIDTH 14.5 % (12.0-15.0); WHITE BLOOD COUNT 13.2 x10^3/uL (4.8-10.8)
[2019-04-17 12:06] LABS: INR 2.1 (0.8-1.2)
[2019-04-17 12:13] LABS: ALBUMIN 3.4 g/dL (3.2-5.5); ALBUMIN/GLOBULIN RATIO 0.9 (1.0-2.2); CALCIUM 8.6 mg/dL (8.5-10.3); CREATININE 0.8 mg/dL (0.6-1.2)
[2019-04-17 12:14] LABS: PARTIAL THROMBOPLASTIN TIME 37.8 secs (24.9-33.3)
--- NOTE | 2019-04-17 13:28 | CT Report ---
Reason: right upper tibial area abscess; ? if deeper Procedure Date: 04/17/2019 Accession Number: [id number] / [id number] Procedure: CT - LOWER EXTREMITY W - RT CPT Code: Final Report FULL RESULT: EXAM: RIGHT FOOT LOWER EXTREMITY WITH CONTRAST EXAM DATE: 04/17/2019 12:48 PM. CLINICAL HISTORY: Right upper tibial area abscess; ? if deeper. COMPARISON: LEG LOWER RT 04/11/2019 8:13 PM. TECHNIQUE: Thin-section axial images were acquired from the distal thigh to the distal leg after administration of intravenous contrast. IV contrast: 100 cc Optiray 320. Post-processing: Coronal and sagittal reformats. Other: None. In accordance with CT protocol optimization, one or more of the following dose reduction techniques were utilized for this exam: automated exposure control, adjustment of mA and/or KV based on patient size, or use of iterative reconstructive technique. FINDINGS: Bones: Locking lateral fixation plate proximal lateral tibia extending from the epiphysis to the mid diaphysis. Transverse fixation screws proximal epiphysis and oblique fixation screw proximal metaphysis with interval healing comminuted tibial spine, medial tibial plateau proximal medial tibia fracture. Exuberant callus formation medial aspect proximal tibia diametaphysis. Posterior proximal tibia locking fixation plate. Negative for osteolysis to suggest osteomyelitis. Joints: Moderate quantity of fluid lateral patellar recess. Small quantity of fluid medial patellar recess. Suprapatellar recess thickening suggestive of synovitis. Mild lateral patellar subluxation. Negative for deep venous thrombosis. Musculature: The muscle planes are without fluid or gas to suggest necrotizing fasciitis. Other: Negative for soft tissue gas. Anterior knee and diffuse leg cellulitis most severe anteriorly. NT anterior medial proximal leg is a subcutaneous abscess 3.9 x 5.4 cm in transverse dimension and 8 cm in height. IMPRESSION: Proximal anterior medial leg subcutaneous abscess 5.4 x 3.9 cm in transverse dimension and 8 cm in height. RADIA
[2019-04-17] MEDS ORDERED: cefTRIAXone 1 GM VIAL IVP STA (14:05)
[2019-04-17 17:37] VITALS: BP 128/81
== END 2019-04-17 18:35 | disposition short-term general hospital (02) ==
LOC: ED 09:13
DX: T81.42XA Infection following a procedure, deep incisional surgical site, initial encounter (principal); L02.415 Cutaneous abscess of right lower limb; Y83.8 Other surgical procedures as the cause of abnormal reaction of the patient, or of later complication, without mention of misadventure at the time of the procedure; Z79.01 Long term (current) use of anticoagulants; M32.9 Systemic lupus erythematosus, unspecified; Z87.891 Personal history of nicotine dependence
CPT/HCPCS: 36415; 73701; 80053; 83690; 85025; 85610; 85651; 85730; 87070; 87205; 96365; 96375; 96376; 99284; 99285; Q9967

== ENCOUNTER 2020-01-10 15:24 | Outpatient (CLI) | payer OTHER ==
--- NOTE | 2020-01-10 18:35 | XRAY Report ---
PROCEDURE: Lumbar Spine 2 View INDICATIONS: LUMBAR RADICULOPATHY TECHNIQUE: 2 views of the lumbar spine were acquired. COMPARISON: 02/27/2014, MRI 03/13/2015. Abdomen pelvis CT, 07/10/2013 FINDINGS: Bones: 5 [id number] vertebrae are present. Mild levoconvex scoliotic curvature is seen. Minim al retrolisthesis is seen at L1-L2 and at L2-L3. No vertebral body compression fractures. No suspici ous bony lesions. There is mild disc space narrowing seen at L1-L2, with associated partially bridging anterior osteoph ytes. The disc heights are otherwise relatively well-preserved. Facet arthropathy is seen, which is most prominent inferiorly. Soft tissues: Overlying bowel gas pattern is normal. No suspicious soft tissue calcifications. IMPRESSION: Focal L1-L2 degenerative change. Lower lumbar spine facet arthropathy. If it would be helpful for clinical management decision making, please consider a dedicated lumbar MR I for further evaluation (assuming that there is no contraindication). Reviewed by: Miko Santoro MD on 01/10/2020 5:34 PM [facility] Approved by: Miko Santoro MD on 01/10/2020 5:34 PM [facility] Station ID: [id number]
--- NOTE | 2020-01-12 09:25 | MRI Report ---
PROCEDURE: Lumbar Spine W/O INDICATIONS: LUMBAR RADICULOPATHY TECHNIQUE: Noncontrast sagittal T1 spin echo and T2 fast echo, sagittal STIR, axial T1 and T2 fast spin echo thr ough the lumbar spine. In cases with scoliosis, additional coronal T2 fast spin echo may be performe d. COMPARISON: Lumbar spine X-rays 01/10/2020. FINDINGS: Image quality: Excellent. Alignment and Curvature: There is normal bony alignment. Bone Marrow: Marrow is of normal overall signal. No acute vertebral body compression fractures. Spinal Cord: Conus medullaris terminates at the L1-2 disc level. Visualized cord demonstrates javi l signal and size. Paraspinous Soft Tissues: No paravertebral masses. T12-L1: Normal in appearance. L1-L2: Loss of disc signal. Mild, diffuse disc bulge. Mild narrowing of the central canal. Mild bi lateral neural foraminal narrowing. No neural compression. L2-L3: Slight loss of disc signal. Minimal, diffuse disc bulge. No central stenosis. Mild bilatera l neural foraminal narrowing. No neural compression. L3-L4: Slight loss of disc signal. Minimal, diffuse disc bulge. Mild bilateral facet hypertrophy Mi ld narrowing of the central canal. Mild bilateral neural foraminal narrowing. No neural compression. L4-L5: Slight loss of disc signal. Minimal, diffuse disc bulge. Mild bilateral facet hypertrophy. M ild narrowing of the central canal. Moderate bilateral neural foraminal narrowing. No neural compress ion. L5-S1: Loss of disc signal. Minimal, diffuse disc bulge. Mild bilateral facet hypertrophy. No centr al stenosis. Mild bilateral neural foraminal narrowing. No neural compression. IMPRESSION: 1. Mild multilevel degenerative disc disease. 2. Mild multilevel facet arthropathy. 3. Mild L1-L2, L3-L4 and L4-L5 central canal narrowing. 4. Moderate bilateral L4-L5 neural foraminal narrowing. Mild bilateral L1-L2, L2-L3, L3-L4, and L5-S1 neural foraminal narrowing. 5. No neural compression. Reviewed by: Shilpa Blanchard MD, PhD on 01/12/2020 9:23 AM PDT Approved by: Shilpa Blanchard MD, PhD on 01/12/2020 9:23 AM PDT Station ID: [id number]
== END 2020-01-10 15:25 | disposition home or self-care (01) ==
LOC: DI 15:24
PROVIDERS: ATTEND Physician Assistant Medical
DX: M51.16 Intervertebral disc disorders with radiculopathy, lumbar region (principal); M48.061 Spinal stenosis, lumbar region without neurogenic claudication; M47.26 Other spondylosis with radiculopathy, lumbar region
CPT/HCPCS: 72100; 72148

== ENCOUNTER 2020-02-27 08:00 | Outpatient (CLI) | payer OTHER ==
[2020-02-27 18:16] LABS: BASOPHILS # (AUTO) 0.1 10^3/uL (0.0-0.1); BASOPHILS % (AUTO) 0.7 %; EOSINOPHILS # (AUTO) 0.4 10^3/uL (0.0-0.7); EOSINOPHILS % (AUTO) 4.1 %; HGB - HEMOGLOBIN 15.1 g/dL (14.0-18.0); LYMPHOCYTES % (AUTO) 33.1 %; MEAN CORPUSCULAR HGB CONC 32.3 g/dL (32.0-36.0); MEAN CORPUSCULAR VOLUME 95.9 fL (80.0-94.0); MEAN PLATELET VOLUME 11.2 fL (7.4-11.4); MONOCYTES # (AUTO) 0.7 10^3/uL (0.0-1.0); MONOCYTES % (AUTO) 7.3 %; NEUTROPHILS % (AUTO) 54.4 %; PLT - PLATELET COUNT 269 10^3/uL (130-450); RED BLOOD COUNT 4.87 10^6/uL (4.70-6.10); RED CELL DISTRIBUTION WIDTH 13.2 % (12.0-15.0); WHITE BLOOD COUNT 9.1 x10^3/uL (4.8-10.8)
[2020-02-27 18:36] LABS: ALBUMIN 4.2 g/dL (3.2-5.5); ALBUMIN/GLOBULIN RATIO 1.4 (1.0-2.2); ALKALINE PHOSPHATASE 89 IU/L (42-121); ALT ALANINE AMINOTRANSFERASE 48 IU/L (10-60); AST ASPARTATE AMINOTRANSFERASE 31 IU/L (10-42); BUN - BLOOD UREA NITROGEN 14 mg/dL (6-20); CALCIUM 9.7 mg/dL (8.5-10.3); CARBON DIOXIDE - CO2 26 mmol/L (21-32); CHLORIDE 103 mmol/L (101-111); CHOL/HDL RATIO 3.8 (<5.0); CHOLESTEROL 150 mg/dL; CREATININE 0.9 mg/dL (0.6-1.2); GLUCOSE 87 mg/dL (70-100); HDL CHOLESTEROL 40 mg/dL; LDL CHOLESTEROL,CALCULATED 75 mg/dL; LDL/HDL RATIO 1.9 (<3.6); SODIUM 139 mmol/L (135-145); TOTAL PROTEIN 7.2 g/dL (6.7-8.2); VLDL CHOLESTEROL 35 mg/dL
== END 2020-02-27 23:59 | disposition home or self-care (01) ==
LOC: LAB.WCP 08:00
PROVIDERS: ATTEND Physician Assistant Medical
DX: E78.5 Hyperlipidemia, unspecified (principal); M79.7 Fibromyalgia; G47.30 Sleep apnea, unspecified; F32.9 Major depressive disorder, single episode, unspecified; Z12.5 Encounter for screening for malignant neoplasm of prostate
CPT/HCPCS: 36415; 80050; 80061; 83721; 84153

== ENCOUNTER 2021-03-09 08:50 | Outpatient (CLI) | payer OTHER ==
[2021-03-09 12:33] LABS: BASOPHILS % (AUTO) 0.5 %; EOSINOPHILS # (AUTO) 0.3 10^3/uL (0.0-0.7); EOSINOPHILS % (AUTO) 3.7 %; HCT - HEMATOCRIT 43.2 % (42.0-52.0); HGB - HEMOGLOBIN 14.3 g/dL (14.0-18.0); LYMPHOCYTES # (AUTO) 3.4 10^3/uL (1.5-3.5); LYMPHOCYTES % (AUTO) 41.6 %; MEAN CORPUSCULAR HGB CONC 33.1 g/dL (32.0-36.0); MEAN CORPUSCULAR VOLUME 96.6 fL (80.0-94.0); MEAN PLATELET VOLUME 10.9 fL (7.4-11.4); MONOCYTES # (AUTO) 0.6 10^3/uL (0.0-1.0); MONOCYTES % (AUTO) 7.1 %; NEUTROPHILS # (AUTO) 3.8 10^3/uL (1.5-6.6); NEUTROPHILS % (AUTO) 46.9 %; PLT - PLATELET COUNT 241 10^3/uL (130-450); RED BLOOD COUNT 4.47 10^6/uL (4.70-6.10); RED CELL DISTRIBUTION WIDTH 13.3 % (12.0-15.0); WHITE BLOOD COUNT 8.1 x10^3/uL (4.8-10.8)
[2021-03-09 12:42] LABS: ALBUMIN 4.3 g/dL (3.2-5.5); ALBUMIN/GLOBULIN RATIO 1.6 (1.0-2.2); ALKALINE PHOSPHATASE 61 IU/L (42-121); ALT ALANINE AMINOTRANSFERASE 29 IU/L (10-60); AST ASPARTATE AMINOTRANSFERASE 25 IU/L (10-42); BILIRUBIN,TOTAL 0.9 mg/dL (0.2-1.0); BUN - BLOOD UREA NITROGEN 13 mg/dL (6-20); CALCIUM 9.3 mg/dL (8.5-10.3); CARBON DIOXIDE - CO2 29 mmol/L (21-32); CHLORIDE 103 mmol/L (101-111); CHOL/HDL RATIO 4.1 (<5.0); CHOLESTEROL 167 mg/dL; GFR - MDRD 78 (>89); GLUCOSE 96 mg/dL (70-100); HDL CHOLESTEROL 41 mg/dL; LDL CHOLESTEROL,CALCULATED 99 mg/dL; LDL/HDL RATIO 2.4 (<3.6); POTASSIUM 4.5 mmol/L (3.5-5.0); SODIUM 140 mmol/L (135-145); TRIGLYCERIDES 133 mg/dL; VLDL CHOLESTEROL 27 mg/dL
[2021-03-09 12:49] LABS: THYROID STIMULATING HORMONE 2.68 uIU/mL (0.34-5.60)
== END 2021-03-09 23:59 | disposition home or self-care (01) ==
LOC: LAB.WCP 08:50
PROVIDERS: ATTEND Physician Assistant Medical
DX: Z00.00 Encounter for general adult medical examination without abnormal findings (principal); E78.5 Hyperlipidemia, unspecified; Z12.5 Encounter for screening for malignant neoplasm of prostate; J30.9 Allergic rhinitis, unspecified
CPT/HCPCS: 36415; 80053; 80061; 83721; 84153; 84443; 85025

== ENCOUNTER 2021-04-04 11:59 | Outpatient (CLI) | payer OTHER ==
--- NOTE | 2021-04-04 15:57 | XRAY Report ---
PROCEDURE: Thoracic Spine 2 View INDICATIONS: LUMBAR SPONDYLOSIS TECHNIQUE: 3 views of the thoracic spine were acquired. COMPARISON: None. FINDINGS: Bones: No fractures or dislocations. No suspicious bony lesions. 12 pairs of ribs are noted, and a ppear intact where visualized. Soft tissues: No paravertebral stripe thickening. Tubing is noted overlying the left neck, chest an d abdomen. IMPRESSION: Unremarkable exam. Tubing is noted overlying the right neck, chest and abdomen as above. This may be overlying to the pa tient. FILTER [employer]ESS [employer]ER shunt cannot be excluded. Reviewed by: Carline Vicente MD on 04/04/2021 3:56 PM PST Approved by: Carline Vicente MD on 04/04/2021 3:56 PM [facility] Station ID: [id number]
--- NOTE | 2021-04-04 15:59 | XRAY Report ---
PROCEDURE: Lumbar Spine w/Flex/Ext INDICATIONS: LUMBAR SPONDYLOSIS TECHNIQUE: 6 views of the lumbar spine acquired. COMPARISON: None. FINDINGS: Bones: 5 [id number] vertebrae are present. There is grade 1 retrolisthesis of L5 on S1, 7 mm a s well as trace retrolisthesis of L4 on L5. Multilevel degenerative disc space narrowing as well as a nterior osteophytes are present. Severe foraminal narrowing is noted L5-S1. Pars defect is present at L5. Moderate foraminal narrowing is present at L2-3 as well as moderate to severe L5-S1. No vertebra l body compression fractures. No suspicious bony lesions. Soft tissues: Overlying bowel gas pattern is normal. No suspicious soft tissue calcifications. Iat rogenic device is noted overlying the posterior lumbar spine coursing along the left hemiabdomen and visualized chest. Flexion/extension: There is normal range of motion, with preserved normal alignment. IMPRESSION: 1. Grade 1 retrolisthesis of L5 on S1 with pars defect. No dynamic instability. Reviewed by: Carline Vicente MD on 04/04/2021 3:58 PM PST Approved by: Carline Vicente MD on 04/04/2021 3:58 PM PST Station ID: [id number]
== END 2021-04-04 12:00 | disposition home or self-care (01) ==
LOC: DI 11:59
PROVIDERS: ATTEND Pain Medicine Pain Medicine
DX: M47.816 Spondylosis without myelopathy or radiculopathy, lumbar region (principal); M43.16 Spondylolisthesis, lumbar region

== ENCOUNTER 2021-05-17 17:54 | Emergency (ER) | payer MEDICARE ==
--- NOTE | 2021-05-17 18:15 | ED Physician Documentation ---
History of Present Illness - Stated complaint Stated Complaint: DIZZINESS, PASSED OUT HEADACHE - Chief complaint Chief Complaint: Neuro - History obtained from History obtained from: Patient - History of Present Illness Timing: How many hours ago (1) Pain level max: 10 Pain level now: 10 - Additonal information Additional information: 51-year-old male presents to the emergency department complaint of a sudden onset headache. He states that this occurred while he was in the shower. He states that it made him lightheaded and dizzy. He states that he started to fall, but caught himself. Does not think he struck his head. He states he feels generalized weakness now. He is on Xarelto. Patient does have a history of migraines, but states that this feels different. Review of Systems Ten Systems: 10 systems reviewed and negative Constitutional: denies: Fever, Chills Cardiac: denies: Chest pain / pressure, Palpitations Respiratory: denies: Dyspnea, Cough Skin: denies: Rash Musculoskeletal: denies: Neck pain, Back pain Neurologic: reports: Headache. denies: Focal weakness, Numbness PD PAST MEDICAL HISTORY - Past Medical History Cardiovascular: None Respiratory: None Neuro: Migraines Endocrine/Autoimmune: None, Systemic lupus erythematosus GI: None : None HEENT: None Psych: None Musculoskeletal: Osteoarthritis, Fatigue, Chronic back pain Derm: None - Past Surgical History Past Surgical History: Yes General: Other Ortho: ACL reconstruction, Rotator cuff repair, Other - Present Medications Home Medications: Ambulatory Orders Medication Instructions Recorded Confirmed Cholecalciferol (Vitamin D3) 2,000 unit PO DAILY 04/22/15 05/17/21 [Vitamin D3] Cyanocobalamin (Vitamin B-12) 1,000 mcg PO DAILY 10/04/15 05/17/21 [Vitamin B12] Pregabalin [Lyrica] 300 mg PO BID 01/23/18 05/17/21 Atorvastatin Calcium 20 mg ORAL HS 04/11/19 05/17/21 Rivaroxaban [Xarelto] 5 mg ORAL DAILY PM 04/11/19 05/17/21 Buspirone HCl 15 mg PO BID 05/17/21 05/17/21 Hydromorphone HCl 4 mg PO Q4HR PRN MDD max 4/tabs a 05/17/21 05/17/21 day Mirtazapine 30 mg PO HS 05/17/21 05/17/21 - Allergies Allergies/Adverse Reactions: Allergies Allergy/AdvReac Type Severity Reaction Status Date / Time fluticasone [From Flonase] Allergy Unknown Verified 12/18/18 14:50 - Social History Does the pt smoke?: No Smoking Status: Former smoker Does the pt drink ETOH?: Yes Does the pt have substance abuse?: No - Immunizations Immunizations are current?: Yes - POLST Patient has POLST: No PD ED PE NORMAL - Vitals Vital signs reviewed: Yes - General General: Alert and oriented X 3, No acute distress, Well developed/nourished - HEENT HEENT: Atraumatic, PERRL, EOMI, Moist mucous membranes - Neck Neck: Supple, no meningeal sign - Cardiac Cardiac: RRR, Strong equal pulses - Respiratory Respiratory: No respiratory distress, Clear bilaterally - Abdomen Abdomen: Soft, Non tender, Non distended - Back Back: No spinal TTP - Derm Derm: Warm and dry - Extremities Extremities: No edema - Neuro Neuro: Alert and oriented X 3, 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, No motor deficit, No sensory deficit, Normal speech Eye Opening: Spontaneous Motor: Obeys Commands Verbal: Oriented GCS Score: 15 - Psych Psych: Normal mood, Normal affect Results - Vitals Vitals: Vital Signs - 24 hr 05/17/21 05/17/21 05/17/21 17:58 18:26 19:03 Temperature 36.2 C L Heart Rate 88 79 77 Respiratory 18 18 18 Rate Blood Pressure 150/98 H 155/93 H 141/86 H O2 Saturation 96 98 99 05/17/21 05/17/21 05/17/21 19:34 20:00 20:23 Temperature 36.4 C L Heart Rate 77 78 78 Respiratory 15 22 22 Rate Blood Pressure 136/89 H 148/97 H 148/97 H O2 Saturation 99 97 97 Oxygen O2 Source Room air - Labs Labs: Laboratory Tests 05/17/21 05/17/21 05/17/21 18:20 18:20 18:20 WBC 11.0 H RBC 4.49 L Hgb 14.5 Hct 41.4 L MCV 92.2 MCH 32.3 H MCHC 35.0 RDW 12.7 Plt Count 281 MPV 10.0 Neut # (Auto) 6.4 Lymph # (Auto) 3.6 H [place] # (Auto) 0.8 Eos # (Auto) 0.2 Baso # (Auto) 0.1 Absolute Nucleated RBC 0.00 Nucleated RBC % 0.0 PT 12.7 H INR 1.1 APTT 33.2 Sodium 136 Potassium 3.7 Chloride 102 Carbon Dioxide 24 Anion Gap 10.0 BUN 11 Creatinine 0.9 Estimated GFR (MDRD) 89 Glucose 89 Calcium 9.2 Total Bilirubin 0.8 AST 24 ALT 32 Alkaline Phosphatase 56 Total Protein 7.0 Albumin 4.4 Globulin 2.6 Albumin/Globulin Ratio 1.7 Lipase 23 - Rads (name of study) CT angiogram head Radiology: Final report received, EMP read contemporaneously, See rad report CT angiogram neck Radiology: Final report received, EMP read contemporaneously, See rad report PD MEDICAL DECISION MAKING - ED course Complexity details: reviewed results, re-evaluated patient, considered differential, d/w patient ED course: 51-year-old male with sudden onset headache. No acute findings on CT angiogram of the head and neck. There is a focal area of low attenuation in the left frontal lobe. Patient states that this is chronic and has been there for years. He does not have any new focal neurological deficits. Headache resolved with IV diphenhydramine and droperidol. Patient currently asymptomatic. TO go home at this time. Patient counseled regarding signs and symptoms for which I believe and urgent re-evaluation would be necessary. Patient with good understanding of and agreement to plan and is comfortable going home at this time This document was made in part using voice recognition software. While efforts are made to proofread this document, sound alike and grammatical errors may occu r. IMPRESSION: There are no areas of hemodynamically significant stenosis, vascular occlusion or aneurysmal dilation within the neck vasculature. IMPRESSION: Focal area of low-attenuation within the left frontal lobe suspicious for subacute ischemia. No superimposed hemorrhage. MRI is recommended for additional evaluation. No areas of hemodynamically significant stenosis, vascular occlusion or aneurysmal dilation within the anterior circulation. No areas of hemodynamically significant stenosis, vascular occlusion or aneurysmal dilation within the posterior circulation. Departure - Departure Disposition: 01 Home, Self Care Clinical Impression: Headache Qualifiers: Headache type: unspecified Headache chronicity pattern: acute headache Intractability: not intractable Qualified Code(s): R51.9 - Headache, unspecified Condition: Good Instructions: ED Cephalgia Unspecified Follow-Up: Young,Amada L, PA-C [Primary Care Provider] - Within 1 week Comments: Continue your current medications at home. Return if you worsen. Your CT scans and angiograms do not show any acute abnormalities today. There is that small hypodensity in the left frontal lobe, but that appears to be an old finding. Your doctor may want to perform an MRI. You are not to drive tonight. Your blood work also does not show any acute abnormalities. Discharge Date/Time: 05/17/21 20:32
[2021-05-17 18:26] LABS: BASOPHILS # (AUTO) 0.1 10^3/uL (0.0-0.1); BASOPHILS % (AUTO) 0.5 %; EOSINOPHILS # (AUTO) 0.2 10^3/uL (0.0-0.7); EOSINOPHILS % (AUTO) 1.6 %; HCT - HEMATOCRIT 41.4 % (42.0-52.0); HGB - HEMOGLOBIN 14.5 g/dL (14.0-18.0); LYMPHOCYTES # (AUTO) 3.6 10^3/uL (1.5-3.5); LYMPHOCYTES % (AUTO) 32.3 %; MEAN CORPUSCULAR HEMOGLOBIN 32.3 pg (27.0-31.0); MEAN CORPUSCULAR VOLUME 92.2 fL (80.0-94.0); MONOCYTES # (AUTO) 0.8 10^3/uL (0.0-1.0); NEUTROPHILS # (AUTO) 6.4 10^3/uL (1.5-6.6); NEUTROPHILS % (AUTO) 58.2 %; PLT - PLATELET COUNT 281 10^3/uL (130-450); RED BLOOD COUNT 4.49 10^6/uL (4.70-6.10); RED CELL DISTRIBUTION WIDTH 12.7 % (12.0-15.0)
[2021-05-17] MEDS ORDERED: IOVERSOL 320 100 ML VIAL IVP ONE ×2 (18:26→19:01)
[2021-05-17 18:39] LABS: ALBUMIN 4.4 g/dL (3.2-5.5); ALBUMIN/GLOBULIN RATIO 1.7 (1.0-2.2); BILIRUBIN,TOTAL 0.8 mg/dL (0.2-1.0); CALCIUM 9.2 mg/dL (8.5-10.3); CREATININE 0.9 mg/dL (0.6-1.2); POTASSIUM 3.7 mmol/L (3.5-5.0)
[2021-05-17 18:42] LABS: INR 1.1 (0.8-1.2); PT - PROTHROMBIN TIME 12.7 secs (9.9-12.6)
[2021-05-17 18:49] LABS: PARTIAL THROMBOPLASTIN TIME 33.2 secs (24.9-33.3)
--- NOTE | 2021-05-17 19:12 | CT Report ---
PROCEDURE: ANGIO HEAD W/WO INDICATIONS: sudden onset headache CONTRAST: IV CONTRAST: Optiray 320 ml: 80 PO CONTRAST: *NO PO CONTRAST TECHNIQUE: Precontrast 4.5 mm thick angled axial sections acquired from the foramen magnum to the vertex. Afte r the administration of intravenous contrast, 1 mm thick sections acquired through the [place] is. Postcontrast 4.5 mm thick sections then re-acquired from the foramen magnum to the vertex. 3-di mensional itmrznh-qmzknhatg-rnrupwqgwo (MIP) and/or volume rendering reformats were acquired of the c entral intracranial vasculature. For radiation dose reduction, the following was used: automated ex posure control, adjustment of mA and/or kV according to patient size. COMPARISON: CTA neck 05/17/2021 FINDINGS: Image quality: Excellent. Anterior circulation: Intracranial internal carotid arteries are normal in size and flow. The flow within the paired anterior cerebral arteries is normal and symmetric. The flow within the middle cer ebral arteries is normal and symmetric. The anterior communicating artery is seen. No aneurysms are seen. Posterior circulation: Visualized portions of the vertebral arteries demonstrate normal caliber, and join to form a normal appearing basilar artery. Flow within the posterior cerebral arteries is norm al and symmetric. No aneurysms are seen. There is a right vertebral artery dominance. Distal left v ertebral artery is markedly atretic. Posterior communicating artery arises from the posterior communi cating artery consistent with congenital variation. CSF spaces: Ventricles are normal in size and shape. Basal cisterns are patent. No extra-axial flu id collections. Brain: No midline shift. No intracranial bleeds or masses. Ill-defined low-attenuation focus is pre sent within the left frontal lobe. Skull and face: Calvarium and facial bones appear intact, without suspicious lesions. Sinuses: Visualized sinuses and mastoids are clear. IMPRESSION: Focal area of low-attenuation within the left frontal lobe suspicious for subacute ischemia. No super imposed hemorrhage. MRI is recommended for additional evaluation. No areas of hemodynamically significant stenosis, vascular occlusion or aneurysmal dilation within th e anterior circulation. No areas of hemodynamically significant stenosis, vascular occlusion or aneurysmal dilation within th e posterior circulation. Reviewed by: Carline Vicente MD on 05/17/2021 7:11 PM PST Approved by: Carline Vicente MD on 05/17/2021 7:11 PM PST Station ID: [id number]
--- NOTE | 2021-05-17 19:15 | CT Report ---
PROCEDURE: ANGIO NECK W INDICATIONS: sudden onset headache CONTRAST: IV CONTRAST: Optiray 320 ml: 80 PO CONTRAST: *NO PO CONTRAST TECHNIQUE: After the administration of intravenous contrast, 1.5 mm axial sections acquired from the aortic arch to the [place]. Coronal 3-D maximum intensity projection (MIP) and/or volume rendering ref ormats were then performed. For radiation dose reduction, the following was used: automated exposur e control, adjustment of mA and/or kV according to patient size. COMPARISON: CTA head 05/17/2021 FINDINGS: Image quality: Excellent. Carotid system: The great vessels demonstrate a conventional anatomy as they arise from the aortic a rch. The origins of the common carotid arteries appear patent. The common carotid arteries demonstr ate normal calibers and courses. The bifurcation regions appear normal bilaterally. The internal ca rotid arteries demonstrate normal caliber and course. Posterior circulation: The origins of the vertebral arteries appear patent. There is a right verteb ral artery dominance with atretic distal left vertebral artery. The more superior portions of the zen tebral arteries demonstrate normal course and caliber. They join to form a normal appearing basilar artery. Soft tissues: Visualized neck soft tissues demonstrate no suspicious abnormalities. The thyroid is normal in size and there are no incidental findings. Bones: No suspicious bony lesions. Visualized cervical spine appears normally aligned. Anterior f usion is present from C4 through C7. IMPRESSION: There are no areas of hemodynamically significant stenosis, vascular occlusion or aneurysmal dilation within the neck vasculature. The estimate of stenosis included in the report of the imaging study was calculated using the NASCET method CLINICAL RECOMMENDATION STATEMENTS: In patients <35 years with an ITN detected on CT, MRI, or extrathyroidal ultrasound, the Committee re commends further evaluation with dedicated thyroid ultrasound if the nodule is "e1 cm and has no susp icious imaging features, and if the patient has normal life expectancy. In patients "e35 years with an ITN detected on CT, MRI, or extrathyroidal ultrasound, the Committee r ecommends further evaluation with dedicated thyroid ultrasound if the nodule is "e1.5 cm and has no s uspicious imaging features, and if the patient has normal life expectancy. (ACR, 2014) Reviewed by: Carline Vicente MD on 05/17/2021 7:14 PM PST Approved by: Carline Vicente MD on 05/17/2021 7:14 PM PST Station ID: [id number]
[2021-05-17] MEDS ORDERED: DROPERIDOL 5 MG/2 ML VIAL IVP STA (19:23)
[2021-05-17] MEDS ORDERED: diphenhydrAMINE INJ 50 MG/ML VIAL IVP STA (19:23)
[2021-05-17 20:18] VITALS: BP 148/97
== END 2021-05-17 20:32 | disposition home or self-care (01) ==
LOC: ED 17:54
DX: R51.9 Headache, unspecified (principal); Z79.01 Long term (current) use of anticoagulants; Z87.891 Personal history of nicotine dependence
CPT/HCPCS: 36415; 70496; 70498; 80053; 83690; 85025; 85610; 85730; 96374; 96375; 99283; 99284; J1200; Q9967

== ENCOUNTER 2021-05-26 15:48 | Outpatient (CLI) | payer OTHER ==
--- NOTE | 2021-05-27 11:06 | XRAY Report ---
PROCEDURE: Foot 3 View RT INDICATIONS: FOOT PAIN, RIGHT TECHNIQUE: 3 views of the foot were acquired. COMPARISON: None FINDINGS: Bones: Mild to moderate hallux valgus is seen. Mild first MTP joint and first interphalangeal joint o steoarthritic changes also seen. No acute fracture or dislocation. Well-defined plantar calcaneal en thesophyte is seen. No suspicious bony lesions. Soft tissues: No tibiotalar joint effusion. Achilles tendon appears normal. IMPRESSION: 1. Mild to moderate hallux valgus and mild right great toe osteoarthritis. No fracture or dislocation . Well-defined calcaneal enthesophyte. Reviewed by: Chidi Albarado MD on 05/27/2021 11:05 AM PST Approved by: Chidi Albarado MD on 05/27/2021 11:05 AM PST Station ID: [id number]
== END 2021-05-26 15:49 | disposition home or self-care (01) ==
LOC: LAB.N 15:48 → DI.N 15:49
PROVIDERS: ATTEND Physician Assistant Medical
DX: M20.11 Hallux valgus (acquired), right foot (principal); M19.071 Primary osteoarthritis, right ankle and foot

== ENCOUNTER 2021-07-07 08:15 | Outpatient (CLI) | payer OTHER ==
--- NOTE | 2021-07-07 17:11 | XRAY Report ---
PROCEDURE: Tib/Fib RT INDICATIONS: LEG PAIN, RIGHT TECHNIQUE: 2 views of the tibia and fibula were acquired. COMPARISON: 2 views of the right lower extremity dated 04/11/2019 FINDINGS: Bones: Tibial plateau hardware is redemonstrated. No hardware fracture. Lateral distal femoral screw is also redemonstrated. No suspicious bony lesions. Soft tissues: No suspicious soft tissue calcifications or masses. IMPRESSION: Extensive tibial plateau hardware unchanged from the 2019 study. No findings to suggest fracture. Reviewed by: Tesha Castellano MD on 07/07/2021 5:10 PM PDT Approved by: Tesha aCstellano MD on 07/07/2021 5:10 PM PDT Station ID: [id number]
== END 2021-07-07 08:16 | disposition home or self-care (01) ==
LOC: DI.N 08:15
PROVIDERS: ATTEND Physician Assistant Medical
DX: M79.604 Pain in right leg (principal); Z96.698 Presence of other orthopedic joint implants

== ENCOUNTER 2021-09-30 16:18 | Emergency (ER) | payer OTHER ==
--- NOTE | 2021-09-30 16:44 | ED Physician Documentation ---
PD HPI MAJOR TRAUMA - Stated complaint Stated Complaint: FALL - Chief complaint Chief Complaint: Trauma Hd/Nk - History obtained from History obtained from: Patient - Additional information Additional information: 51-year-old gentleman on Xarelto for thrombophilia with chronic neck pain and a C3-7 fusion in the past was at work last night, he tripped over a box and then hit his head on a steel beam. The neck hurts the most. He has a headache though and the knee still hurts. He denies loss of consciousness. No nausea. Declines pain medication on initial evaluation. No other injuries. He pr esented by private vehicle but was made a "modified" trauma by the triage nurse after the above history. Review of Systems Ten Systems: 10 systems reviewed and negative Constitutional: denies: Fever, Chills Cardiac: denies: Chest pain / pressure, Palpitations Respiratory: denies: Dyspnea, Cough GI: denies: Abdominal Pain PD PAST MEDICAL HISTORY - Past Medical History Cardiovascular: None Respiratory: None Neuro: Migraines Endocrine/Autoimmune: None, Systemic lupus erythematosus GI: None : None HEENT: None Psych: None Musculoskeletal: Osteoarthritis, Fatigue, Chronic back pain Derm: None - Past Surgical History Past Surgical History: Yes General: Other Ortho: ACL reconstruction, Rotator cuff repair, Other - Present Medications Home Medications: Ambulatory Orders Medication Instructions Recorded Confirmed Cholecalciferol (Vitamin D3) 2,000 unit PO DAILY 04/22/15 05/17/21 [Vitamin D3] Cyanocobalamin (Vitamin B-12) 1,000 mcg PO DAILY 10/04/15 05/17/21 [Vitamin B12] Pregabalin [Lyrica] 300 mg PO BID 01/23/18 05/17/21 Atorvastatin Calcium 20 mg ORAL HS 04/11/19 05/17/21 Rivaroxaban [Xarelto] 5 mg ORAL DAILY PM 04/11/19 05/17/21 Buspirone HCl 15 mg PO BID 05/17/21 05/17/21 Hydromorphone HCl 4 mg PO Q4HR PRN MDD max 4/tabs a 05/17/21 05/17/21 day Mirtazapine 30 mg PO HS 05/17/21 05/17/21 - Allergies Allergies/Adverse Reactions: Allergies Allergy/AdvReac Type Severity Reaction Status Date / Time fluticasone [From Flonase] Allergy Unknown Verified 09/30/21 16:29 - Social History Does the pt smoke?: No Smoking Status: Former smoker Does the pt drink ETOH?: Yes Does the pt have substance abuse?: No - Immunizations Immunizations are current?: Yes - POLST Patient has POLST: No PD ED PE NORMAL - Vitals Vital signs reviewed: Yes - General General: Alert and oriented X 3, No acute distress - HEENT HEENT: PERRL, EOMI - Neck Neck: Other (He is tender to the mid neck and upper T-spine. 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, thumb extension, interosseous strength, and flexion extension of the wrists.) Eye Opening: Spontaneous Motor: Obeys Commands Verbal: Oriented GCS Score: 15 - Psych Psych: Normal mood, Normal affect Results - Vitals Vitals: Vital Signs - 24 hr 09/30/21 09/30/21 16:25 17:52 Temperature 36.1 C L Heart Rate 89 82 Respiratory 16 20 Rate Blood Pressure 130/79 145/95 H O2 Saturation 97 97 Oxygen O2 Source Room air - Rads (name of study) CT of the head, cervical spine, thoracic spine and left knee x-ray are normal Radiology: EMP read contemporaneously PD MEDICAL DECISION MAKING - ED course ED course: 51-year-old gentleman with fall yesterday hitting his head and he is anticoagulated also with neck pain. Relevant CT imaging was negative and he declined prescription pain medication. Departure - Departure Disposition: 01 Home, Self Care Clinical Impression: Anticoagulation adequate Head injury Qualifiers: Encounter type: initial encounter Qualified Code(s): S09.90XA - Unspecified injury of head, initial encounter Neck sprain Qualifiers: Encounter type: initial encounter Qualified Code(s): S13.9XXA - Sprain of joints and ligaments of unspecified parts of neck, initial encounter Contusion of left knee Qualifiers: Encounter type: initial encounter Qualified Code(s): S80.02XA - Contusion of left knee, initial encounter Condition: Good Record reviewed to determine appropriate education?: Yes Instructions: ED Head Injury Closed, ED Sprain Strain Neck Comments: Continue current pain medications. Return for new or worsening symptoms. Follow-up with your doctor in a week for recheck. Forms: Activity restrictions Discharge Date/Time: 09/30/21 17:55
--- NOTE | 2021-09-30 17:07 | XRAY Report ---
PROCEDURE: Knee 4 View LT INDICATIONS: Trauma, fall, knee pain TECHNIQUE: 4 views of the left knee(s) were acquired. COMPARISON: None. FINDINGS: Bones: ACL reconstruction changes. No fractures or dislocations. No suspicious bony lesions. Soft tissues: No joint effusion. No suspicious soft tissue calcifications. IMPRESSION: No acute finding. Left ACL reconstruction changes. Reviewed by: Manpreet Rodríguez MD on 09/30/2021 5:06 PM PDT Approved by: Manpreet Rodríguez MD on 09/30/2021 5:06 PM PDT Station ID: [id number]
--- NOTE | 2021-09-30 17:42 | CT Report ---
PROCEDURE: HEAD WO INDICATIONS: head/neck/back/knee inj TECHNIQUE: Noncontrast 4.5 mm thick angled axial sections acquired from the foramen magnum to the vertex. For r adiation dose reduction, the following was used: automated exposure control, adjustment of mA and/or kV according to patient size. COMPARISON: 05/17/[address] angiogram of the head. FINDINGS: Image quality: Excellent. CSF spaces: Basal cisterns are patent. No extra-axial fluid collections. Ventricles are normal in size and shape. Brain: Mild chronic vascular ischemic changes. No acute intracranial hemorrhage or findings of mass effect. Skull and face: Calvarium and visualized facial bones are intact, without suspicious lesions. Sinuses: Visualized sinuses and mastoids are predominantly clear. IMPRESSION: No acute intracranial finding. Reviewed by: Manpreet Rodríguez MD on 09/30/2021 5:41 PM PDT Approved by: Manpreet Rodríguez MD on 09/30/2021 5:41 PM PDT Station ID: [id number]
--- NOTE | 2021-09-30 17:45 | CT Report ---
PROCEDURE: CERVICAL SPINE WO INDICATIONS: head/neck/back/knee inj TECHNIQUE: Noncontrast 3 mm thick sections acquired from the skull base to the T4 level. Sagittal and coronal r eformats were then constructed. For radiation dose reduction, the following was used: automated exp osure control, adjustment of mA and/or kV according to patient size. COMPARISON: 04/11/2019 CT cervical spine FINDINGS: Spinal stimulator leads enter the dorsal cervical spinal canal at the interspinous C5-C6 level and ex tends superiorly to the C2-C3 level and appear to be in appropriate position. Plate and screw fixatio n construct from C4-C6 and a Low Profile anterior and interbody fixation device at C6-C7 appear to be in similar configuration to the prior exam with no evidence of acute traumatic hardware feature. No nasal bone fracture identified. Degenerative straightening of usual cervical lordosis is similar t o the prior study. No listhesis. Normal configuration of the craniocervical junction. No suspicious l ytic or blastic osseous lesion. IMPRESSION: No acute finding. Reviewed by: Manpreet Rodríguez MD on 09/30/2021 5:43 PM PDT Approved by: Manpreet Rodríguez MD on 09/30/2021 5:43 PM PDT Station ID: [id number]
--- NOTE | 2021-09-30 17:46 | CT Report ---
PROCEDURE: THORACIC SPINE WO INDICATIONS: head/neck/back/knee inj TECHNIQUE: Noncontrast 3 mm thick sections acquired through the region of interest in the thoracic spine. Sagit prema and coronal reformats were then constructed. For radiation dose reduction, the following was used : automated exposure control, adjustment of mA and/or kV according to patient size. COMPARISON: None. FINDINGS: Partially visualized cervical fusion hardware. Normal thoracic spine vertebral body height and alignm ent. No acute fracture in the cervical spine. Visualized portions of the posterior and lateral ribs a re normal. Regional soft tissues unremarkable. IMPRESSION: No acute finding. Reviewed by: Manpreet Rodríguez MD on 09/30/2021 5:44 PM PDT Approved by: Manpreet Rodríguez MD on 09/30/2021 5:44 PM PDT Station ID: [id number]
[2021-09-30 17:55] VITALS: BP 145/95
== END 2021-09-30 17:55 | disposition home or self-care (01) ==
LOC: ED 16:18
DX: S09.90XA Unspecified injury of head, initial encounter (principal); S13.9XXA Sprain of joints and ligaments of unspecified parts of neck, initial encounter; S80.02XA Contusion of left knee, initial encounter; W01.198A Fall on same level from slipping, tripping and stumbling with subsequent striking against other object, initial encounter; Y99.0 Civilian activity done for income or pay; D68.59 Other primary thrombophilia; Z87.891 Personal history of nicotine dependence; Z79.01 Long term (current) use of anticoagulants
CPT/HCPCS: 1040M; 70450; 72125; 72128; 73564; 99282; 99284

== ENCOUNTER 2022-03-08 15:08 | Outpatient (CLI) | payer OTHER ==
[2022-03-08 15:24] LABS: BASOPHILS # (AUTO) 0.1 10^3/uL (0.0-0.1); BASOPHILS % (AUTO) 0.6 %; EOSINOPHILS # (AUTO) 0.4 10^3/uL (0.0-0.7); EOSINOPHILS % (AUTO) 4.4 %; HCT - HEMATOCRIT 41.7 % (42.0-52.0); HGB - HEMOGLOBIN 13.9 g/dL (14.0-18.0); LYMPHOCYTES # (AUTO) 3.7 10^3/uL (1.5-3.5); MEAN CORPUSCULAR HEMOGLOBIN 31.1 pg (27.0-31.0); MEAN CORPUSCULAR HGB CONC 33.3 g/dL (32.0-36.0); MEAN CORPUSCULAR VOLUME 93.3 fL (80.0-94.0); MEAN PLATELET VOLUME 10.2 fL (7.4-11.4); MONOCYTES # (AUTO) 0.7 10^3/uL (0.0-1.0); MONOCYTES % (AUTO) 7.2 %; NEUTROPHILS # (AUTO) 4.4 10^3/uL (1.5-6.6); NEUTROPHILS % (AUTO) 47.5 %; PLT - PLATELET COUNT 225 10^3/uL (130-450); RED BLOOD COUNT 4.47 10^6/uL (4.70-6.10); RED CELL DISTRIBUTION WIDTH 12.6 % (12.0-15.0); WHITE BLOOD COUNT 9.3 x10^3/uL (4.8-10.8)
[2022-03-08 15:40] LABS: ALBUMIN 4.4 g/dL (3.2-5.5); ALBUMIN/GLOBULIN RATIO 1.8 (1.0-2.2); ALKALINE PHOSPHATASE 57 IU/L (42-121); ALT ALANINE AMINOTRANSFERASE 33 IU/L (10-60); AST ASPARTATE AMINOTRANSFERASE 22 IU/L (10-42); BILIRUBIN,TOTAL 0.9 mg/dL (0.2-1.0); BUN - BLOOD UREA NITROGEN 14 mg/dL (6-20); CALCIUM 8.9 mg/dL (8.5-10.3); CARBON DIOXIDE - CO2 27 mmol/L (21-32); CHLORIDE 101 mmol/L (101-111); CHOL/HDL RATIO 4.2 (<5.0); CHOLESTEROL 142 mg/dL; CREATININE 0.9 mg/dL (0.6-1.2); GFR - MDRD 88 (>89); GLUCOSE 84 mg/dL (70-100); HDL CHOLESTEROL 34 mg/dL; LDL CHOLESTEROL,CALCULATED 79 mg/dL; LDL/HDL RATIO 2.3 (<3.6); SODIUM 136 mmol/L (135-145); TOTAL PROTEIN 6.9 g/dL (6.7-8.2); TRIGLYCERIDES 143 mg/dL; VLDL CHOLESTEROL 29 mg/dL
[2022-03-08 15:53] LABS: THYROID STIMULATING HORMONE 2.86 uIU/mL (0.34-5.60)
== END 2022-03-08 15:09 | disposition home or self-care (01) ==
LOC: LAB 15:08
PROVIDERS: ATTEND Physician Assistant Medical
DX: Z00.00 Encounter for general adult medical examination without abnormal findings (principal); E78.5 Hyperlipidemia, unspecified; Z12.5 Encounter for screening for malignant neoplasm of prostate
CPT/HCPCS: 36415; 80050; 80061; 83721; 84153

== ENCOUNTER 2023-03-08 12:46 | Outpatient (CLI) | payer OTHER ==
[2023-03-08 17:51] LABS: BASOPHILS # (AUTO) 0.1 10^3/uL (0.0-0.1); BASOPHILS % (AUTO) 0.8 %; EOSINOPHILS # (AUTO) 0.1 10^3/uL (0.0-0.7); EOSINOPHILS % (AUTO) 1.1 %; HCT - HEMATOCRIT 42.9 % (42.0-52.0); LYMPHOCYTES # (AUTO) 2.7 10^3/uL (1.5-3.5); LYMPHOCYTES % (AUTO) 38.6 %; MEAN CORPUSCULAR HEMOGLOBIN 30.5 pg (27.0-31.0); MEAN CORPUSCULAR HGB CONC 32.6 g/dL (32.0-36.0); MEAN CORPUSCULAR VOLUME 93.5 fL (80.0-94.0); MEAN PLATELET VOLUME 10.6 fL (7.4-11.4); MONOCYTES # (AUTO) 0.6 10^3/uL (0.0-1.0); MONOCYTES % (AUTO) 9.1 %; NEUTROPHILS # (AUTO) 3.5 10^3/uL (1.5-6.6); NEUTROPHILS % (AUTO) 50.1 %; PLT - PLATELET COUNT 255 10^3/uL (130-450); RED BLOOD COUNT 4.59 10^6/uL (4.70-6.10); RED CELL DISTRIBUTION WIDTH 13.1 % (12.0-15.0); WHITE BLOOD COUNT 7.1 x10^3/uL (4.8-10.8)
[2023-03-08 18:06] LABS: ALBUMIN 4.3 g/dL (3.2-5.5); ALBUMIN/GLOBULIN RATIO 1.8 (1.0-2.2); ALKALINE PHOSPHATASE 62 IU/L (42-121); ALT ALANINE AMINOTRANSFERASE 28 IU/L (10-60); AST ASPARTATE AMINOTRANSFERASE 21 IU/L (10-42); BILIRUBIN,TOTAL 0.8 mg/dL (0.2-1.0); BUN - BLOOD UREA NITROGEN 12 mg/dL (6-20); CALCIUM 9.1 mg/dL (8.5-10.3); CARBON DIOXIDE - CO2 24 mmol/L (21-32); CHLORIDE 107 mmol/L (101-111); CHOL/HDL RATIO 4.4 (<5.0); CHOLESTEROL 145 mg/dL; GFR - MDRD 78 (>89); GLUCOSE 89 mg/dL (74-104); HDL CHOLESTEROL 33 mg/dL; LDL CHOLESTEROL,CALCULATED 86 mg/dL; LDL/HDL RATIO 2.6 (<3.6); POTASSIUM 4.3 mmol/L (3.5-4.5); SODIUM 137 mmol/L (135-145); TOTAL PROTEIN 6.7 g/dL (6.4-8.9); TRIGLYCERIDES 130 mg/dL (48-352); VLDL CHOLESTEROL 26 mg/dL
[2023-03-08 18:20] LABS: THYROID STIMULATING HORMONE 1.84 uIU/mL (0.34-5.60)
== END 2023-03-08 12:47 | disposition home or self-care (01) ==
LOC: LAB.N 12:46
PROVIDERS: ATTEND Physician Assistant Medical
DX: Z00.00 Encounter for general adult medical examination without abnormal findings (principal); Z12.5 Encounter for screening for malignant neoplasm of prostate
CPT/HCPCS: 36415; 80053; 80061; 83721; 84153; 84443; 85025

== ENCOUNTER 2023-05-08 11:50 | Outpatient (CLI) | payer OTHER ==
[2023-05-08 18:16] LABS: CHOL/HDL RATIO 4.9 (<5.0); CHOLESTEROL 183 mg/dL; HDL CHOLESTEROL 37 mg/dL; LDL CHOLESTEROL,CALCULATED 99 mg/dL; LDL/HDL RATIO 2.7 (<3.6); TRIGLYCERIDES 234 mg/dL (48-352); VLDL CHOLESTEROL 47 mg/dL
== END 2023-05-08 11:51 | disposition home or self-care (01) ==
LOC: LAB.N 11:50
PROVIDERS: ATTEND Physician Assistant Medical
DX: E78.5 Hyperlipidemia, unspecified (principal)
CPT/HCPCS: 36415; 80061; 83721